=== PATIENT | male | born 1955 ===

== ENCOUNTER 2025-03-20 10:35 | Outpatient (REF) | payer SELFPAY ==
[2025-03-20 12:09] LABS: MANUAL DIFF FLAG NO
[2025-03-20 12:18] LABS: Hematocrit 36.5 % (42.0-52.0); Hemoglobin 11.9 g/dl (14.0-18.0); Imm Gran Abs Auto 0.01 X10*3/uL (0.00-0.03); Imm Gran Pct Auto 0.3 % (0.0-0.4); Lymphocytes Absolute Auto 0.8 X10*3/uL (1.2-4.9); Mean Corpuscular HGB Conc 32.6 g/dl (31.0-36.0); Mean Corpuscular Hemoglobin 28.1 pg (27.0-33.0); Mean Corpuscular Volume 86.1 fL (80.0-98.0); NRBC Abs Auto 0.000 X10*3/uL (0.0-0.012); NRBC Pct Auto 0.0 /100WBC (0.0-0.2); Platelet Count 113 X10*3/uL (160-400); Red Blood Count 4.24 X10*6/uL (4.60-5.80); White Blood Count 4.0 X10*3/uL (4.8-10.8)
[2025-03-20 12:54] LABS: Alanine Aminotransferase 17 U/L (0-40); Albumin Level 4.1 g/dL (3.5-5.0); Alkaline Phosphatase 42 U/L (39-117); Anion Gap 11 (12-20); Aspartate Amino Transferase 18 U/L (5-37); Blood Urea Nitrogen 23 mg/dL (9-16); Calcium 9.0 mg/dL (8.4-10.2); Carbon Dioxide 28 mmol/L (22-29); Chloride 109 mmol/L (96-108); Estimated Glomerular Filt Rate 53; Magnesium 2.2 mg/dL (1.6-2.6); Potassium 4.3 mmol/L (3.3-5.1); Sodium 144 mmol/L (135-145); Total Protein 6.0 g/dL (6.5-8.0)
--- OUTSIDE RECORDS SUMMARY | 2025-03-20 14:46 | XMS_ITS | Encounter Summary ---
Author Organization [facility] Address [address] [place] [address] Phone Care Team Providers Care Garbage Collector Name Role Phone Erik Greer MD Unavailable [phone] Cabrera Cox MD Unavailable [phone] Leandro Arana MD, PhD Unavailable Self-Referred, Patient Unavailable Unavailab Jeannine Manrique MD Primary Care Provider [phone] Samson Nichols MD Unavailable [phone] Candice Lucas MD Unavailable [phone] Neville Ireland MD Unavailable [phone] Bi, Cole Gutierrez MD, PhD Unavailable [phone] Elisabeth Olson PA-C Unavailable [phone] Travis Ibarra [facility] Unavailable [phone] Encounter Details Date Type Department Care Team (Late st Contact Info) Description 01/07/2025 Procedure Pass MRI, [facility] [address] [place] [address] Social History Tobacco Use Types Packs/Day Years Used Date Smoking Tobacco: Former Cigarettes 0.5 21 0 05/24/1970 - 1991 Smokeless Tobacco: Never Alcohol Use Standard Drinks/Week Comments Yes 4 (1 standard drink = 0.6 oz pur e alcohol) 2-3 vodkas daily Child or Family Care Answer Date Record ed Do you have problems with on e of the following making it difficult for you to work, study, or receive health care? No 08/09/2024 Education Answer Date Recorded Are you interested in more education? Not on julita e 09/10/2022 Are you concerned about learning? Not on file 09/10/2022 No 09/10/2022 No 09/10/2022 Food Answer Date Recorded Within the past 6 months we worried whether our food would run out before we got money to buy more. Never True 08/09/2024 Within the past 6 months the food we bought just didn't last and we didn't have enough money to get more. Never True Residential Stability Answer Date Recor ded What is your housing situation today? I have sirena sing 08/09/2024 How many times have you move d in the past 12 months? Zero (I did not move) 08/09/2024 Paying for Meds Answer Date Recorded Do you have trouble paying for medicines? No 08/09/2024 Paying Utility Bills Answer Date Record ed Do you have trouble paying your heating or elect ricity bill? No 08/09/2024 Transportation Answer Date Recorded Has the lack of transportati on kept you from medical appointments or from getting medications? No 08/09/2024 Digital Access Answer Date Recorded No 10/09/2022 No 10/09/2022 Reliable internet access at home? Not on file 10/09/2022 Device with a working camera? Not on file Sex and Gender Information Value Date Recorded Sex Assigned at Male 07/12/2024 2:18 PM EST Legal Sex Male 10:08 AM EDT Gender Identity Male 07/12/2024 2:18 PM EST Sexual Orientation Straight 07/12/2024 2: 18 PM EST documented as of this encounter Plan of Treatment Upcoming Encounters Date Type Department Care Team (Late st Contact Info) Description 12/19/2024 Procedure Pass [facility] Radiology Department [address] [place] [address] 2025 Procedure Pass [facility] Radiology Department [address] [place] [address] 03/27/2025 8:00 AM EST Ancillary Procedure [facility] Radiology Department [address] [place] [address] Elisabeth Olson PA-C [address] [place] [address] [email or web address]@[email or web address] 03/27/2025 9:00 AM EST Nurse Only Electrocardiogram, [address] [address] Neville Ireland MD [address] [place] [phone] [email or web address] 03/27/2025 9:10 AM EST Blood Draw Laboratory Services, [address], [address]nd [place] [address] Elisabeth Olson PA-C [address] [place] [phone] [email or web address]@[email or web address] 03/27/2025 10:00 AM EST Office Visit Center for Neuro-Oncology, [address] [place] [address] Neville Ireland MD [address] [place] [address] [email or web address]@[facility] 03/27/2025 1:00 PM EST Office Visit Adult Palliative Care, [address] [place] [address] North Johnson MD, MPH [address] [place] [address] [email or web address]@[email or web address] 03/28/2025 1:00 PM EST Appointment Department of Radiation Oncology [address] [place] [address] Betzaida Yan PA-C [address] [place] [address] 04/04/2025 1:00 PM EST Telemedicine Psychosocial Oncology, [address] [address] Jason Del Rio MD [address] [place] [address] Vilma@[email or web address] 04/24/2025 1:00 PM EST Ancillary Procedure [facility] [address] [place] [address] Neville Ireland MD [address] [place] [address] [email or web address]@[facility] 04/24/2025 3:00 PM EST Office Visit Center for Neuro-Oncology, [address] [place] [address] Neville Ireland MD [address] [place] [address] Ranulfo@[facility] documented as of this encounter Visit Diagnoses Not on filedocumented in this encounter Additional Health Concerns Assessment Noted Time PHQ-9 Depression Total Score: 7 01/08/20 7:04 AM EDT PHQ-2 Depression Total Score: 5 01/08/20 7:04 AM EDT documented as of this encounter Care Teams Garbage Collector Relationship Specialty Start Date End Date Jeannine Brody MD [address] [place] [address] PCP - General Internal Medicine 08/01/24 Erik Greer MD 100 [facility] [address] [place] [address] [email or web address] Urology 04/26/18 Cabrera Cox MD 100 [facility] [address] [place] [phone] [email or web address] Urology 04/26/18 Leandro Arana MD, PhD [address] [place] [address] [email or web address] Radiation Oncology 04/26/18 Self-Referred, Patient Referring Physician 07/12/24 Samson Nichols MD [address] [place] [address] [email or web address] u Radiation Oncology 08/04/24 Candice Lucas MD [address] [place] [address] Neurosurgery 08/04/24 Neville Ireland MD [address] [place] [address] [email or web address] Medical Oncology 08/04/24 Cole Hassan MD, PhD [address] [place] [address] [email or web address] Neurosurgery 08/06/24 Elisabeth Olson PA-C [address] [place] [address] [email or web address] Physician Newspaper Photojournalist 09/12/24 Travis Ibarra, [address] [address] Tayler@[email or web address] Transportation Clerk Oncology 12/05/24 documented as of this encounter Additional Source Comments The information contained in this document represents components of the legal health record. It is not the complete legal health record.[facility]
--- OUTSIDE RECORDS SUMMARY | 2025-03-20 14:46 | XMS_ITS | Patient Health Record ---
Author Organization [facility] Address [address] [place] [address] Care Team Providers Care Folder Gluer Operator Name Role Phone Gladis DUGGAN, Juan Primary Care Provider Hari Langley Unavailable [phone] Allergies Allergen (clinical drug ingredient) Drug/Non Drug Allergy documented on EMR Reaction Allergy Type Onset Date Status morphine Morphine vomiting Drug Allergy Active Reason For Referral No Information Social History Tobacco Use: Social History Observation Description Date Details (start date - stop date) Former Smoker NA - NA Tobacco Use/Smoking Question Answer Notes Are you a: former smoker Additional Findings: Tobacco Non-User Current no n-smoker Alcohol Screen Question Answer Notes Did you have a drink containing alcohol in the p ast year? Yes Points 0 Interpretation Negative Tobacco use other than smoking: Question Answer Notes Are you an other tobacco user? No Plan Of Treatment No Information Insurance Providers Payer Name Payer Address Payer Phone Subscriber Number Group Number Insured Name Patient Relationship to Insured Coverage Start Date Coverage End Date [facility] [address] [place] [address] [phone] [id number] Soraida Proctor Spouse - patient is the spouse of the insured Medical (General) History Medical History History ICD Code Cancer Surgical History Surgery Date(Month/Year) prostate 06/2018
--- OUTSIDE RECORDS SUMMARY | 2025-03-20 14:46 | XMS_ITS ---
Author Organization [facility] Address [address] [facility] [address] [place] [address] Phone Care Team Providers Care Educational Guidance Counselor Name Role Phone Erik Greer MD Unavailable [phone] Cabrera Cox MD Unavailable [phone] Leandro Arana MD, PhD Unavailable Self-Referred, Patient Unavailable Unavailab Jeannine Manrique MD Primary Care Provider [phone] Samson Nichols MD Unavailable [phone] Candice Lucas MD Unavailable [phone] Neville Ireland MD Unavailable [phone] Bi, Cole Gutierrez MD, PhD Unavailable [phone] Elisabeth Olson PA-C Unavailable [phone] Travis Ibarra [facility] Unavailable [phone] Active Problems Problem Noted Date Diagnosed Date Radiation therapy induced brain necrosis 025 Former tobacco use 08/07/2024 DJD (degenerative joint disease), cervical 08/07 Decreased hearing 08/07/2024 Glioblastoma of occipital lobe 08/03/2024 Cancer Staging:Clinical stage from 07/16/2024:WHO G4- Signed by Samson Nichols MD on 08/07/2024 Prostate cancer Cancer Staging:Clinical stage from 04/26/2018: T1c, PSA Level: Less than 10, [place] <= 6, Stage Date: 04/26/18 - Unsigned Assessment & Plan (06/23/2018 6:05 AM EST): Plan: Admit to urology (ASK) N: APAP, oxycodone, toradol; 20 shots of liquor/week - CIWA ordered Pulm: monitor CV: monitor GI: ADAT in AM; bowel reg : bryant x7 days H: pboots, home with lovenox x7 days E: No issues ID: kosta-op ancef x24h only AM labs D/c home today Current Treatment and Therapy Plans CARBOPLATIN (MALIGNANT GLIOMA)* Plan Start Date:01/11/2025 Plan Provider:Neville Ireland MD Linked Problems Glioblastoma of occipital lo be Treatment Medications Current Day (Day 1 , Cycle 2 - Planned for 02/08/2025) Next Day (Day 1, Cycle 3 - Planned for 03/08/2025) CARBOplatin (PARAPLATIN)CARBOplatin (PARAPLATIN) IVPB (by AUC) 270 mL CARBOplatin (PARAPLATIN) 383 mg in D5W 308.3 mL IVPB CARBOplatin (PARAPLATIN) 383 mg in D5W 308.3 mL IVPB Other Current Plans BEVACIZUMAB - EVERY OTHER WEEK* Plan Start Date:01/11/2025 Plan Provider:Neville Ireland MD Linked Problems Radiation therapy induced br ain necrosis Treatment Medications Current Day (Day 1 5, Cycle 2 - Planned for 02/23/2025) bevacizumabbevacizumab-awwb (MVASI) IVPB Bag bevacizumab-awwb (MVASI) 663 mg in sodiu m chloride 0.9% 136.52 mL IVPB Past Treatment and Therapy Plans RESEARCH PLAN Plan Name Start Date Discontinue Date Treatment Medications Discontinue Reason Plan Provider Cycles 16-443 CONTROL 5 01/07/2025 temozolomide (TEMODAR) b. Progression Neville Ireland MD 3 of 7 cycles completed 16-443 CONTROL 08/20/2024 11/05/2024 temozolomide (TEMODAR) a. Therapy Complete Neville Ireland MD Treatment not started Past Radiation Episodes * VMAT: Left Occipital lobe of brainOverview* First Treatment Date Last Treatment Date Treatment Site Technique Goal Episode Provider 08/21/2024 10/01/2024 Left Occipital lobe of brain VMAT Definitive Samson Nichols MD * Linked Problems Glioblastoma of occipital lo be * Episode Note Cem Proctor is a 69 y.o. 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 Lucas at [facility]). Treatment Courses* Course C1 08/21/2024 - 10/01/2024 Treatment Period Fraction Dose Fractions Total Dose Plans Planned A1_L_Occipita 08/21/2024 - 10/01/2024 200 cGy 30 / 30 6,000 cGy Reference Points Delivered A_L_Occipital 08/21/2024 - 10/01/2024 6,000 cGy Resolved Problems Problem Noted Date Diagnosed Date Resolved Date At risk for falls 08/14/2024 01/01/2025 Pre-diabetes 08/07/2024 01/01/2025 Hypoglycemia 08/07/2024 01/01/2025 History of prostate cancer 08/07/2024 0 08/07/2024 Overview (08/07/2024): Per previous PCP notes: treated with prostatectomy at the [facility] Decreased functional mobility 07/17/2024 01/01/2025 Alteration in self-care ability 07/17/2024 01/01/2025 Intracranial mass 07/13/2024 08/07/2024 Osteoarthritis 09/10/2022 01/01/2025 Pain of ear structure 09/10/20222024 Urolithiasis 01/01/2025 Kidney stones 01/01/2025 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
--- OUTSIDE RECORDS SUMMARY | 2025-03-20 14:46 | XMS_ITS | Encounter Summary ---
Author Organization [facility] Address [address] [facility] [address] [place] [address] Phone Care Team Providers Care Sterile Preparation Technician Name Role Phone Erik Greer MD Unavailable [phone] Cabrera Cox MD Unavailable [phone] Leandro Arana MD, PhD Unavailable Self-Referred, Patient Unavailable Unavailab Jeannine Manrique MD Primary Care Provider [phone] Samson Nichols MD Unavailable [phone] Candice Lucas MD Unavailable [phone] Neville Ireland MD Unavailable [phone] Bi, Cole Gutierrez MD, PhD Unavailable [phone] Elisabeth Olson PA-C Unavailable [phone] Travis Ibarra [facility] Unavailable [phone] Encounter Details Date Type Department Care Team (Late st Contact Info) Description 01/20/2025 Telephone [facility] [address] [place] [phone] Manuelito Bustos MD, PhD [address] [place] [phone] [email or web address] Social History Tobacco Use Types Packs/Day Years [...] with a working camera? Not on file Intimate Partner Violence Answer Date R ecorded Are you denied basic needs s uch as food, clothing, or medical care? No 01/23/2025 In the past 12 months have y ou been in a relationship with a person who hurts, threatens, or tries to control you? No 01/23/2025 Are you denied basic needs s uch as food, clothing, or medical care? No 01/23/2025 In the past 12 months have y ou been in a relationship with a person who hurts, threatens, or tries to control you? No 01/23/2025 Sex and Gender Information Value Date Recorded Sex Assigned at Male 07/12/2024 2:18 PM EST Legal Sex Male 10:08 AM EDT Gender Identity Male 07/12/2024 2:18 PM EST Sexual Orientation Straight 07/12/2024 2: 18 PM EST documented as of this encounter Progress Notes * Manuelito Bustos MD, PhD - 01/20/2025 7:51 AM EDT Telephone Note 69 year old man with glioblastoma, now on carboplatin and OCHOA (last 01/11/2025), followed by Dr. Ireland. Last MRI 01/07/2025 notable for new confluent and nodular supratentorial periventricular enhancement including enhancement along 4h vent. I returned the patient's family's page. For about one day, Mr. Proctor has been experiencing pressurebehind his eyes. It began yesterday after wearing an old pair of glasses, but this AM, after he woke up, he found that the pressure persisted, more behind his left eye now. The pain is currently a 3/10. No vision changes (a chronic R field cut persists), no weakness nor sensory changes, no nausea or vomiting. No clear positionality. In response to this new pressure, we discussed it could be related to his tumor. Therefore, we willplan to try a short course of steroids (though I will provide a longer prescription to keep on handat home) of dexamethasone 4mg qD. He has an inperson appt with us 01/23 where we will address the ongoing need for these medications and need for imaging. In the meantime, we also discussed that if the symptoms worsen or there is an acute change that he should present to an ED. Manuelito Bustos MD NOC Fellow documented in this encounter Plan of Treatment Upcoming Encounters Date Type Department Care Team (Late st Contact Info) Description 12/19/2024 Procedure Pass [facility] Radiology Department [address] [place] [address] 2025 Procedure Pass [facility] Radiology Department [address] [place] [address] 03/27/2025 8:00 AM EST Ancillary Procedure [facility] Radiology Department [address] [place] [address] Elisabeth Olson PA-C [address] [place] [phone] Kirstie@[email or web address] 03/27/2025 9:00 AM EST Nurse Only Electrocardiogram, [address] [address] Neville Ireland MD [address] [place] [address] [email or web address] 03/27/2025 9:10 AM EST Blood Draw Laboratory Services, [address] [place] [address] Elisabeth Olson PA-C [address] [place] [phone] Kirstie@[facility] 03/27/2025 10:00 AM EST Office Visit Center for Neuro-Oncology, [address] [place] [address] Neville Ireland MD [address] [place] [address] Ranulfo@[facility] 03/27/2025 1:00 PM EST Office Visit Adult Palliative Care, [address] [place] [address] North Johnson MD, MPH [address] [place] [address] Kamini@[email or web address] 03/28/2025 1:00 PM EST Appointment Department of Radiation Oncology [address] [place] [address] Betzaida Yan PA-C [address] [place] [address] [email or web address] 04/04/2025 1:00 PM EST Telemedicine Psychosocial Oncology, [address] [address] Jason Del Rio MD [address] [place] [address] Vilma@[email or web address] 04/24/2025 1:00 PM EST Ancillary Procedure [facility] [address] [place] [address] Neville Ireland MD [address] [place] [address] [email or web address]@[email or web address] 04/24/2025 3:00 PM EST Office Visit Center for Neuro-Oncology, [address] [place] [address] Neville Ireland MD [address] [place] [address] [email or web address]@[email or web address] documented as of this encounter Visit Diagnoses Not on filedocumented in this encounter Additional Health Concerns Assessment Noted Time PHQ-9 Depression Total Score: 7 01/08/20 7:04 AM EDT PHQ-2 Depression Total Score: 5 01/08/20 7:04 AM EDT documented as of this encounter Care Teams Sterile Preparation Technician Relationship Specialty Start Date End Date Jeannine Brody MD [address] [place] [address] PCP - General Internal Medicine 08/01/24 Erik Greer MD [address] [phone] [email or web address] Urology 04/26/18 Cabrera Cox MD [address] [phone] [email or web address] Urology 04/26/18 Leandro Arana MD, PhD [address] [place] [address] [email or web address] Radiation Oncology 04/26/18 Self-Referred, Patient Referring Physician 07/12/24 Samson Nichols MD [address] [place] [address] [email or web address] Radiation Oncology 08/04/24 Candice Lucas MD [address] [place] [address] Neurosurgery 08/04/24 Neville Ireland MD [address] [place] [address] [email or web address] Medical Oncology 08/04/24 Cole Hassan MD, PhD [address] [place] [address] [email or web address] Neurosurgery 08/06/24 Elisabeth Olson PA-C [address] [place] [address] [email or web address] Physician Special Investigator 09/12/24 Travis Ibarra, [address] [address] [email or web address] Book Repairer Oncology 12/05/24 documented as of this encounter Additional Source Comments The information contained in this document represents components of the legal health record. It is not the complete legal health record.[facility]
--- OUTSIDE RECORDS SUMMARY | 2025-03-20 14:46 | XMS_ITS | Encounter Summary ---
Author Organization [facility] Address [address] [place] [address] Phone Care Team Providers Care Freelance Data Entry Name Role Phone Erik Greer MD Unavailable [phone] Cabrera Cox MD Unavailable [phone] Leandro Arana MD, PhD Unavailable Self-Referred, Patient Unavailable Unavailab Jeannine Manrique MD Primary Care Provider [phone] Samson Nichols MD Unavailable [phone] Candice Lucas MD Unavailable [phone] Neville Ireland MD Unavailable [phone] Bi, Cole Gutierrez MD, PhD Unavailable +[phone] Elisabeth Olson PA-C Unavailable +[phone] Travis Ibarra [facility] Unavailable +[phone] Encounter Details Date Type Department Care Team (Late st Contact Info) Description 01/07/2025 Procedure Pass MRI, [facility] Imaging [address] Darryl [...] st Contact Info) Description 12/19/2024 Procedure Pass [facility] Radiology Department [address] [place] [address] 2025 Procedure Pass [facility] Radiology Department [address] [place] [address] 03/27/2025 8:00 AM EST Ancillary Procedure [facility] Radiology Department [address] [place] [address] Elisabeth Olson PA-C [address] [place] [address] Kirstie@[facility] 03/27/2025 9:00 AM EST Nurse Only Electrocardiogram, [address] [address] Neville Ireland MD [address] [place] [address] Ranulfo@[facility] 03/27/2025 9:10 AM EST Blood Draw Laboratory Services, [address], 2nd [place] [address] Elisabeth Olson PA-C [address] [place] [address] Kirstie@[facility] 03/27/2025 10:00 AM EST Office Visit Center for Neuro-Oncology, [address], [address]th [place] [address] Neville Ireland MD [address] [place] [address] Ranulfo@[facility] 03/27/2025 1:00 PM EST Office Visit Adult Palliative Care, [address], [address]th [place] [address] North Johnson MD, MPH [address] [place] [address] Kamini@[facility] 03/28/2025 1:00 PM EST Appointment Department of Radiation Oncology [address] [place] [address] Betzaida Yan PA-C [address] [place] [address] 04/04/2025 1:00 PM EST Telemedicine Psychosocial Oncology, [address] [address] Jason Del Rio MD [address] [place] [address] Vilma@[facility] 04/24/2025 1:00 PM EST Ancillary Procedure [facility] [address] [place] [address] Neville Ireland MD [address] [place] [address] Ranulfo@[facility] 04/24/2025 3:00 PM EST Office Visit Center for Neuro-Oncology, [address], 9th [place] [address] Neville Ireland MD [address] [place] [address] Ranulfo@[facility] documented as of this encounter Visit Diagnoses Not on filedocumented in this encounter Additional Health Concerns Assessment Noted Time PHQ-9 Depression Total Score: 7 01/08/20 7:04 AM EDT PHQ-2 Depression Total Score: 5 01/08/20 7:04 AM EDT documented as of this encounter Care Teams Freelance Data Entry Relationship Specialty Start Date End Date Jeannine Brody MD [address] [place] [address] PCP - General Internal Medicine 08/01/24 Erik Greer MD 100 [facility] 120 [place] [address] [email or web address] Urology 04/26/18 Cabrera Cox MD 100 [facility] 120 [place] [phone] PATRICK@[facility] Urology 04/26/18 Leandro Arana MD, PhD [address] [place] [address] [email or web address] Radiation Oncology 04/26/18 Self-Referred, Patient Referring Physician 07/12/24 Samson Nichols MD [address] [place] [address] [email or web address] u Radiation Oncology 08/04/24 Candice Lucas MD [address] [place] [address] Neurosurgery 08/04/24 Neville Ireland MD [address] [place] [address] Ranulfo@[facility] Medical Oncology 08/04/24 Cole Hassan MD, PhD [address] [place] [address] WBI@[email or web address] Neurosurgery 08/06/24 Elisabeth Olson PA-C [address] [place] [address] Kirstie@[facility] Physician Emergency Detail Driver 09/12/24 Travis Ibarra, [address] [address] Tayler@[facility] Spinning Frame Fixer Oncology 12/05/24 documented as of this encounter Additional Source Comments The information contained in this document represents components of the legal health record. It is not the complete legal health record.[facility]
--- OUTSIDE RECORDS SUMMARY | 2025-03-20 14:46 | XMS_ITS | Encounter Summary ---
Author Organization [facility] Address [address] [place] [address] Phone Care Team Providers Care Cargo Worker Name Role Phone Erik Greer MD Unavailable [phone] aCbrera Cox MD Unavailable [phone] Leandro Arana MD, PhD Unavailable Self-Referred, Patient Unavailable Unavailab Jeannine Manrique MD Primary Care Provider [phone] Samson Nichols MD Unavailable [phone] Candice Lucas MD Unavailable [phone] Neville Ireland MD Unavailable [phone] Bi, Cole Gutierrez MD, PhD Unavailable [phone] Elisabeth Olson PA-C Unavailable +[phone] Travis Ibarra [facility] Unavailable [phone] Encounter Details Date Type Department Care Team (Late st Contact Info) Description 08/06/2024 Procedure Pass [facility] MR Imaging, [place] [address] [place] [address] Social History Tobacco Use Types Packs/Day Years [...] st Contact Info) Description 12/19/2024 Procedure Pass [facility] Radiology Department [address] [place] [address] 2025 Procedure Pass [facility] Radiology Department [address] [place] [address] 03/27/2025 8:00 AM EST Ancillary Procedure [facility] Radiology Department [address] [place] [address] Elisabeth Olson PA-C [address] [place] [address] Kirstie@[facility] 03/27/2025 9:00 AM EST Nurse Only Electrocardiogram, [address] [address] Neville Ireland MD [address] [place] [address] Ranulfo@[facility] 03/27/2025 9:10 AM EST Blood Draw Laboratory Services, [address], 2nd [place] [address] Elisabeth Olson PA-C [address] [place] [address] Kirstie@[facility] 03/27/2025 10:00 AM EST Office Visit Center for Neuro-Oncology, [address], [address]th [place] [address] Neville Ireland MD [address] [place] [address] Ranulfo@[facility] 03/27/2025 1:00 PM EST Office Visit Adult Palliative Care, [address], [address]th [place] [address] North Johnson MD, MPH [address] [place] [address] Kamini@[facility] 03/28/2025 1:00 PM EST Appointment Department of Radiation Oncology [address] [place] [address] Betzaida Yan PA-C [address] [place] [address] 04/04/2025 1:00 PM EST Telemedicine Psychosocial Oncology, [address] [address] Jason Del Rio MD [address] [place] [address] Vilma@[facility] 04/24/2025 1:00 PM EST Ancillary Procedure [facility] [address] [place] [address] Neville Ireland MD [address] [place] [address] Ranulfo@[facility] 04/24/2025 3:00 PM EST Office Visit Center for Neuro-Oncology, [address], 9th [place] [address] Neville Ireland MD [address] [place] [address] Ranulfo@[facility] documented as of this encounter Visit Diagnoses Not on filedocumented in this encounter Care Teams Cargo Worker Relationship Specialty Start Date End Date Jeannine Brody MD [address] [place] [address] PCP - General Internal Medicine 08/01/24 Erik Greer MD 100 [facility] 120 [place] [phone] silverio@[facility].or g Urology 04/26/18 Cabrera Cox MD 100 [facility] 120 [place] [phone] PATRICK@[facility] Urology 04/26/18 Leandro Arana MD, PhD [address] [place] [address] ellis@[email or web address] Radiation Oncology 04/26/18 Self-Referred, Patient Referring Physician 07/12/24 Samson Nichols MD [address] [place] [address] [email or web address] u Radiation Oncology 08/04/24 Candice Lucas MD [address] [place] [address] Neurosurgery 08/04/24 Neville Ireland MD [address] [place] [address] Ranulfo@[facility] Medical Oncology 08/04/24 BiCole MD, PhD [address] [place] [address] WBI@[facility] Neurosurgery 08/06/24 Elisabeth Olson PA-C [address] [place] [address] Kirstie@[facility] Physician Nursing Officer 09/12/24 Travis Ibarra, [address] [address] Tayler@[facility] Jewelry Bench Worker Oncology 12/05/24 documented as of this encounter Additional Source Comments The information contained in this document represents components of the legal health record. It is not the complete legal health record.[facility]
--- OUTSIDE RECORDS SUMMARY | 2025-03-20 14:46 | XMS_ITS | Encounter Summary ---
Author Organization [facility] Address [address] [facility] [address] [place] [address] Phone Care Team Providers Care Bike Assembler Name Role Phone Erik Greer MD Unavailable [phone] Cabrera Cox MD Unavailable [phone] Leandro Arana MD, PhD Unavailable Self-Referred, Patient Unavailable Unavailab Jeannine Manrique MD Primary Care Provider [phone] Samson Nichols MD Unavailable [phone] Candice Lucas MD Unavailable [phone] Neville Ireland MD Unavailable [phone] Bi, Cole Gutierrez MD, PhD Unavailable [phone] Elisabeth Olson PA-C Unavailable [phone] Travis Ibarra [facility] Unavailable [phone] Encounter Details Date Type Department Care Team (Late st Contact Info) Description 08/06/2024 Procedure Pass [facility] MR Imaging, [place] [address] [place] [address] Social History Tobacco Use Types [...] st Contact Info) Description 12/19/2024 Procedure Pass [facility] Radiology Department [address] [place] [address] 2025 Procedure Pass [facility] Radiology Department [address] [place] [address] 03/27/2025 8:00 AM EST Ancillary Procedure [facility] Radiology Department [address] [place] [address] Elisabeth Olson PA-C [address] [place] [address] Kirstie@[facility] 03/27/2025 9:00 AM EST Nurse Only Electrocardiogram, [address] [address] Neville Ireland MD [address] [place] [address] Ranulfo@[facility] 03/27/2025 9:10 AM EST Blood Draw Laboratory Services, [address], 2nd [place] [address] Elisabeth Olson PA-C [address] [place] [address] Kirstie@[facility] 03/27/2025 10:00 AM EST Office Visit Center for Neuro-Oncology, [address], [address]th [place] [address] Neville Ireland MD [address] [place] [address] Ranulfo@[facility] 03/27/2025 1:00 PM EST Office Visit Adult Palliative Care, [address], [address]th [place] [address] North Johnson MD, MPH [address] [place] [address] Kamini@[facility] 03/28/2025 1:00 PM EST Appointment Department of Radiation Oncology [address] [place] [address] Betzaida Yan PA-C [address] [place] [address] 04/04/2025 1:00 PM EST Telemedicine Psychosocial Oncology, [address] [address] Jason Del Rio MD [address] [place] [address] Vilma@[facility] 04/24/2025 1:00 PM EST Ancillary Procedure [facility] [address] [place] [address] Neville Ireland MD [address] [place] [address] Ranulfo@[facility] 04/24/2025 3:00 PM EST Office Visit Center for Neuro-Oncology, [address], 9th [place] [address] Neville Ireland MD [address] [place] [address] Ranulfo@[facility] documented as of this encounter Visit Diagnoses Not on filedocumented in this encounter Care Teams Bike Assembler Relationship Specialty Start Date End Date Jeannine Brody MD [address] [place] [address] PCP - General Internal Medicine 08/01/24 Erik Greer MD 100 [facility] 120 [place] [phone] [email or web address] g Urology 04/26/18 Cabrera Cox MD 100 [facility] 120 [place] [phone] PATRICK@[facility] Urology 04/26/18 Leandro Arana MD, PhD [address] [place] [address] [email or web address] Radiation Oncology 04/26/18 Self-Referred, Patient Referring Physician 07/12/24 Samson Nichols MD [address] [place] [address] [email or web address] u Radiation Oncology 08/04/24 Candice Lucas MD [address] [place] [address] Neurosurgery 08/04/24 Neville Ireland MD [address] [place] [address] Ranulfo@[facility] Medical Oncology 08/04/24 BiCole MD, PhD [address] [place] [address] WBI@[facility] Neurosurgery 08/06/24 Elisabeth Olson PA-C [address] [place] [address] Kirstie@[facility] Physician Rubber Goods Inspector Tester 09/12/24 Travis Ibarra, [address] [address] Tayler@[facility] Dolly Pusher Oncology 12/05/24 documented as of this encounter Additional Source Comments The information contained in this document represents components of the legal health record. It is not the complete legal health record.[facility]
--- OUTSIDE RECORDS SUMMARY | 2025-03-20 14:46 | XMS_ITS | Encounter Summary ---
Author Organization [facility] Address [address] [facility] [address] [place] [address] Phone Care Team Providers Care Admission Discharge Rn Name Role Phone Erik Greer MD Unavailable [phone] Cabrera Cox MD Unavailable [phone] Leandro Arana MD, PhD Unavailable Self-Referred, Patient Unavailable Unavailab Jeannine Manrique MD Primary Care Provider [phone] Samson Nichols MD Unavailable [phone] Candice Lucas MD Unavailable [phone] Neville Ireland MD Unavailable [phone] Bi, Cole Gutierrez MD, PhD Unavailable +[phone] Elisabeth Olson PA-C Unavailable [phone] Travis Ibarra [facility] Unavailable [phone] Encounter Details Date Type Department Care Team (Late st Contact Info) Description 08/06/2024 Procedure Pass [facility] MR Imaging, [place] [address] [place] [address] Social History Tobacco Use Types [...] st Contact Info) Description 12/19/2024 Procedure Pass [facility] Radiology Department [address] [place] [address] 2025 Procedure Pass [facility] Radiology Department [address] [place] [address] 03/27/2025 8:00 AM EST Ancillary Procedure [facility] Radiology Department [address] [place] [address] Elisabeth Olson PA-C [address] [place] [address] Kirstie@[facility] 03/27/2025 9:00 AM EST Nurse Only Electrocardiogram, [address] [address] Neville Ireland MD [address] [place] [address] Ranulfo@[facility] 03/27/2025 9:10 AM EST Blood Draw Laboratory Services, [address], 2nd [place] [address] Elisabeth Olson PA-C [address] [place] [address] Kirstie@[facility] 03/27/2025 10:00 AM EST Office Visit Center for Neuro-Oncology, [address], [address]th [place] [address] Neville Ireland MD [address] [place] [address] Ranulfo@[facility] 03/27/2025 1:00 PM EST Office Visit Adult Palliative Care, [address], [address]th [place] [address] North Johnson MD, MPH [address] [place] [address] Kamini@[facility] 03/28/2025 1:00 PM EST Appointment Department of Radiation Oncology [address] [place] [address] Betzaida Yan PA-C [address] [place] [address] 04/04/2025 1:00 PM EST Telemedicine Psychosocial Oncology, [address] [address] Jason Del Rio MD [address] [place] [address] Vilma@[facility] 04/24/2025 1:00 PM EST Ancillary Procedure [facility] [address] [place] [address] Neville Ireland MD [address] [place] [address] Ranulfo@[facility] 04/24/2025 3:00 PM EST Office Visit Center for Neuro-Oncology, [address], 9th [place] [address] Neville Ireland MD [address] [place] [address] Ranulfo@[facility] documented as of this encounter Visit Diagnoses Not on filedocumented in this encounter Care Teams Admission Discharge Rn Relationship Specialty Start Date End Date Jeannine Brody MD [address] [place] [address] PCP - General Internal Medicine 08/01/24 Erik Greer MD 100 [facility] 120 [place] [phone] silverio@[facility].or g Urology 04/26/18 Cabrera Cox MD 100 [facility] 120 [place] [phone] PATRICK@[facility] Urology 04/26/18 Leandro Arana MD, PhD [address] [place] [address] [email or web address] Radiation Oncology 04/26/18 Self-Referred, Patient Referring Physician 07/12/24 Samson Nichols MD [address] [place] [address] [email or web address] u Radiation Oncology 08/04/24 Candice Lucas MD [address] [place] [address] Neurosurgery 08/04/24 Neville Ireland MD [address] [place] [address] Ranulfo@[facility] Medical Oncology 08/04/24 BiCole MD, PhD [address] [place] [address] WBI@[facility] Neurosurgery 08/06/24 Elisabeth Olson PA-C [address] [place] [address] Kirstie@[facility] Physician Professional Nurse 09/12/24 Travis Ibarra, [address] [address] Tayler@[facility] Reel System Operator Oncology 12/05/24 documented as of this encounter Additional Source Comments The information contained in this document represents components of the legal health record. It is not the complete legal health record.[facility]
--- OUTSIDE RECORDS SUMMARY | 2025-03-20 14:46 | XMS_ITS | Encounter Summary ---
Author Organization [facility] Address [address] [facility] [address] [place] [address] Phone Care Team Providers Care Machine Assistant Name Role Phone Erik Greer MD Unavailable [phone] Cabrera Cox MD Unavailable [phone] Leandro Arana MD, PhD Unavailable Self-Referred, Patient Unavailable Unavailab Jeannine Marnique MD Primary Care Provider [phone] Samson Nichols MD Unavailable [phone] Candice Lucas MD Unavailable [phone] Neville Ireland MD Unavailable [phone] Bi, Cole Gutierrez MD, PhD Unavailable +[phone] Elisabeth Olson PA-C Unavailable [phone] Travis Ibarra [facility] Unavailable [phone] Encounter Details Date Type Department Care Team (Late st Contact Info) Description 08/06/2024 Procedure Pass [facility] MR Imaging, [place] [address] [place] [address] Social History Tobacco Use Types [...] st Contact Info) Description 12/19/2024 Procedure Pass [facility] Radiology Department [address] [place] [address] 2025 Procedure Pass [facility] Radiology Department [address] [place] [address] 03/27/2025 8:00 AM EST Ancillary Procedure [facility] Radiology Department [address] [place] [address] Elisabeth Olson PA-C [address] [place] [address] Kirstie@[facility] 03/27/2025 9:00 AM EST Nurse Only Electrocardiogram, [address] [address] Neville Ireland MD [address] [place] [address] Ranulfo@[facility] 03/27/2025 9:10 AM EST Blood Draw Laboratory Services, [address], 2nd [place] [address] Elisabeth Olsno PA-C [address] [place] [address] Kirstie@[facility] 03/27/2025 10:00 AM EST Office Visit Center for Neuro-Oncology, [address], [address]th [place] [address] Neville Ireland MD [address] [place] [address] Ranulfo@[facility] 03/27/2025 1:00 PM EST Office Visit Adult Palliative Care, [address] [place] [address] North Johnson MD, MPH [address] [place] [address] Kamini@[facility] 03/28/2025 1:00 PM EST Appointment Department of Radiation Oncology [address] [place] [address] Betzaida Yan PA-C [address] [place] [address] 04/04/2025 1:00 PM EST Telemedicine Psychosocial Oncology, [address] [address] Jason Del Rio MD [address] [place] [address] Vilma@[facility] 04/24/2025 1:00 PM EST Ancillary Procedure [facility] [address] [place] [address] Neville Ireland MD [address] [place] [address] Ranulfo@[facility] 04/24/2025 3:00 PM EST Office Visit Center for Neuro-Oncology, [address], 9th [place] [address] Neville Ireland MD [address] [place] [address] Ranulfo@[facility] documented as of this encounter Visit Diagnoses Not on filedocumented in this encounter Care Teams Machine Assistant Relationship Specialty Start Date End Date Jeannine Brody MD [address] [place] [address] PCP - General Internal Medicine 08/01/24 Erik Greer MD 100 [facility] 120 [place] [phone] [email or web address] g Urology 04/26/18 Cabrera Cox MD 100 [facility] 120 [place] [phone] PATRICK@[facility] Urology 04/26/18 Leandro Arana MD, PhD [address] [place] [address] [email or web address]@[email or web address] Radiation Oncology 04/26/18 Self-Referred, Patient Referring Physician 07/12/24 Samson Nichols MD [address] [place] [address] [email or web address] u Radiation Oncology 08/04/24 Candice Lucas MD [address] [place] [address] Neurosurgery 08/04/24 Neville Ireland MD [address] [place] [address] Ranulfo@[facility] Medical Oncology 08/04/24 BiCole MD, PhD [address] [place] [address] WBI@[facility] Neurosurgery 08/06/24 Elisabeth Olson PA-C [address] [place] [address] Kirstie@[facility] Physician General Operations Agent 09/12/24 Travis Ibarra, [address] [address] Tayler@[facility] Tower Climber Oncology 12/05/24 documented as of this encounter Additional Source Comments The information contained in this document represents components of the legal health record. It is not the complete legal health record.[facility]
--- OUTSIDE RECORDS SUMMARY | 2025-03-20 14:46 | XMS_ITS | Encounter Summary ---
Author Organization [facility] Address [address] [place] [address] Phone Care Team Providers Care Head Bander And Liner Operator Name Role Phone Erik Greer MD Unavailable [phone] Cabrera Cox MD Unavailable [phone] Leandro Arana MD, PhD Unavailable Self-Referred, Patient Unavailable Unavailab Jeannine Manrique MD Primary Care Provider Samson Nichols MD Unavailable [phone] Candice Lucas MD Unavailable [phone] Neville Ireland MD Unavailable [phone] Bi, Cole Gutierrez MD, PhD Unavailable +[phone] Elisabeth Olson PA-C Unavailable [phone] Travis Ibarra [facility] Unavailable [phone] Encounter Details Date Type Department Care Team (Late st Contact Info) Description 01/07/2025 Procedure Pass MRI, [facility] [address] Darryl [...] st Contact Info) Description 12/19/2024 Procedure Pass [facility] Radiology Department [address] [place] [address] 2025 Procedure Pass [facility] Radiology Department [address] [place] [address] 03/27/2025 8:00 AM EST Ancillary Procedure [facility] Radiology Department [address] [place] [address] Elisabeth Olson PA-C [address] [place] [address] Kirstie@[facility] 03/27/2025 9:00 AM EST Nurse Only Electrocardiogram, [address] [address] Neville Ireland MD [address] [place] [address] Ranulfo@[facility] 03/27/2025 9:10 AM EST Blood Draw Laboratory Services, [address], 2nd [place] [address] Elisabeth Olson PA-C [address] [place] [address] Kirstie@[facility] 03/27/2025 10:00 AM EST Office Visit Center for Neuro-Oncology, [address], [address]th [place] [address] Neville Ireland MD [address] [place] [address] Ranulfo@[facility] 03/27/2025 1:00 PM EST Office Visit Adult Palliative Care, [address], [address] [place] [address] North Johnson MD, MPH [address] [place] [address] Kamini@[facility] 03/28/2025 1:00 PM EST Appointment Department of Radiation Oncology [address] [place] [address] Betzaida Yan PA-C [address] [place] [address] 04/04/2025 1:00 PM EST Telemedicine Psychosocial Oncology, [address] [address] Jason eDl Rio MD [address] [place] [address] Vilma@[facility] 04/24/2025 1:00 PM EST Ancillary Procedure [facility] [address] [place] [address] Neville Ireland MD [address] [place] [address] Ranulfo@[facility] 04/24/2025 3:00 PM EST Office Visit Center for Neuro-Oncology, [address], 9th [place] [address] Neville Ireland MD [address] [place] [address] Ranulfo@[facility] documented as of this encounter Visit Diagnoses Not on filedocumented in this encounter Additional Health Concerns Assessment Noted Time PHQ-9 Depression Total Score: 7 01/08/20 7:04 AM EDT PHQ-2 Depression Total Score: 5 01/08/20 7:04 AM EDT documented as of this encounter Care Teams Head Bander And Liner Operator Relationship Specialty Start Date End Date Jeannine Brody MD [address] [place] [address] PCP - General Internal Medicine 08/01/24 Erik Greer MD 100 [facility] 120 [place] [address] [email or web address] Urology 04/26/18 Cabrera Cox MD 100 [facility] 120 [place] [phone] [email or web address]@[email or web address] Urology 04/26/18 Leandro Arana MD, PhD [address] [place] [address] [email or web address] Radiation Oncology 04/26/18 Self-Referred, Patient Referring Physician 07/12/24 Samson Nichols MD [address] [place] [address] [email or web address] u Radiation Oncology 08/04/24 Candice Lucas MD [address] [place] [address] Neurosurgery 08/04/24 Neville Ireland MD [address] [place] [address] [email or web address] Medical Oncology 08/04/24 Cole Hassan MD, PhD [address] [place] [address] WBI@[email or web address] Neurosurgery 08/06/24 Elisabeth Olson PA-C [address] [place] [address] Kirstie@[facility] Physician Inspector Firearms 09/12/24 Travis Ibarra, [address] [address] Tayler@[facility] Recording Studio Set Up Worker Oncology 12/05/24 documented as of this encounter Additional Source Comments The information contained in this document represents components of the legal health record. It is not the complete legal health record.[facility]
--- OUTSIDE RECORDS SUMMARY | 2025-03-20 14:48 | XMS_ITS | Encounter Summary ---
Author Organization [facility] Address [address] [facility] [address] [place] [address] Phone Care Team Providers Care Diversified Crops Supervisor Name Role Phone Erik Greer MD Unavailable [phone] Cabrera Cox MD Unavailable [phone] Leandro Arana MD, PhD Unavailable Self-Referred, Patient Unavailable Unavailab Jeannine Manrique MD Primary Care Provider [phone] Samson Nichols MD Unavailable [phone] Candice Lucas MD Unavailable [phone] Neville Ireland MD Unavailable [phone] Bi, Cole Gutierrez MD, PhD Unavailable +[phone] Elisabeth Olson PA-C Unavailable [phone] [facility] Unavailable [phone] Encounter Details Date Type Department Care Team (Late st Contact Info) Description 08/13/2024 Procedure Pass [facility], [facility] [place], [place] [address] [facility], Floor [address]1 [place] [address] Social History Tobacco Use Types Packs/Day Years [...] Upcoming Encounters Date Type Department Care Team (Trevin Contact Info) Description 12/19/2024 Procedure Pass [facility] Radiology Department [address] [place] [address] 2025 Procedure Pass [facility] Radiology Department [address] [place] [address] 03/27/2025 8:00 AM EST Ancillary Procedure [facility] Radiology Department [address] [place] [address] Elisabeth Olson PA-C [address] [place] [address] Kirstie@[facility] 03/27/2025 9:00 AM EST Nurse Only Electrocardiogram, [address] [address] Neville Ireland MD [address] [place] [address] Ranulfo@[facility] 03/27/2025 9:10 AM EST Blood Draw Laboratory Services, [address], 2nd [place] [address] Elisabeth Olson PA-C [address] [place] [address] Kirstie@[facility] 03/27/2025 10:00 AM EST Office Visit Center for Neuro-Oncology, [address], [address]th [place] [address] Neville Ireland MD [address] [place] [address] Ranulfo@[facility] 03/27/2025 1:00 PM EST Office Visit Adult Palliative Care, [address], [address]th [place] [address] North Johnson MD, MPH [address] [place] [address] Kamini@[facility] 03/28/2025 1:00 PM EST Appointment Department of Radiation Oncology [address] [place] [address] Betzaida Yan PA-C [address] [place] [address] [email or web address] 04/04/2025 1:00 PM EST Telemedicine Psychosocial Oncology, [address] [address] Jason Del Rio MD [address] [place] [address] Vilma@[facility] 04/24/2025 1:00 PM EST Ancillary Procedure [facility] [address] [place] [address] Neville Ireland MD [address] [place] [address] Ranulfo@[facility] 04/24/2025 3:00 PM EST Office Visit Center for Neuro-Oncology, [address], 9th [place] [address] Neville Ireland MD [address] [place] [address] Ranulfo@[facility] documented as of this encounter Visit Diagnoses Not on filedocumented in this encounter Additional Health Concerns Assessment Noted Time PHQ-2 Depression Total Score: 0 08/15/19 25 5:57 PM EDT documented as of this encounter Care Teams Diversified Crops Supervisor Relationship Specialty Start Date End Date Jeannine Brody MD [address] [place] [address] PCP - General Internal Medicine 08/01/24 Erik Greer MD [address] [facility] [address] [place] [address] [email or web address] Urology 04/26/18 Cabrera Cox MD [address] [facility] [address] [place] [address] PATRICK@[facility] Urology 04/26/18 Leandro Arana MD, PhD [address] [place] [address] [email or web address] Radiation Oncology 04/26/18 Self-Referred, Patient Referring Physician 07/12/24 Samson Nichols MD [address] [place] [address] [email or web address] u Radiation Oncology 08/04/24 Candice Lucas MD [address] [place] [address] Neurosurgery 08/04/24 Neville Ireland MD [address] [place] [address] Ranulfo@[email or web address] Medical Oncology 08/04/24 BiCole MD, PhD [address] [place] [address] [email or web address] Neurosurgery 08/06/24 Elisabeth Olson PA-C [address] [place] [address] Kirstie@[facility] Physician Sand Blaster 09/12/24 Travis Ibarra, [address] [address] Tayler@[facility] Marine Fire Fighter Oncology 12/05/24 documented as of this encounter Additional Source Comments The information contained in this document represents components of the legal health record. It is not the complete legal health record.[facility]
--- OUTSIDE RECORDS SUMMARY | 2025-03-20 14:48 | XMS_ITS | Encounter Summary ---
Author Organization [facility] Address [address] [place], [place] [address] [place] [address] Phone Care Team Providers Care Cloth Winder Name Role Phone Juan Griffith MD Primary Care Provider [phone] Erik Greer MD Unavailable [phone] Cabrera Cox MD Unavailable [phone] Leandro Arana MD, PhD Unavailable Jeannine Brody MD Primary Care Provider [phone] Self-Referred, Patient Unavailable Unavailab Jeannine Manrique MD Primary Care Provider [phone] Samson Nichols MD Unavailable [phone] Candice Lucas MD Unavailable [phone] Neville Ireland MD Unavailable [phone] Cole Hassan MD, PhD Unavailable [phone] Elisabeth Olson PA-C Unavailable [phone] [facility] Unavailable [phone] Encounter Details Date Type Department Care Team (Late Contact Info) Description 05/05/2018 Telephone [facility] Urology [address] [facility]-3 [place] [address] Cabrera Cox MD 45 [facility]. [facility] 11-3 [place] [address] [email or web address] Social History Tobacco Use Types Packs/Day Years Used Date Smoking Tobacco: Former Cigarettes 0.5 15 Alcohol Use Standard Drinks/Week Comments Yes 20 (1 standard drink = 0.6 oz pu re alcohol) vodka Sex and Gender Information Value Date Recorded Sex Assigned at Male 07/12/2024 2:18 PM EST Legal Sex Male 10:08 AM EDT Gender Identity Male 07/12/2024 2:18 PM EST Sexual Orientation Straight 07/12/2024 2: 18 PM EST documented as of this encounter Plan of Treatment Upcoming Encounters Date Type Department Care Team (Late st Contact Info) Description 12/19/2024 Procedure Pass [facility] Radiology Department [address] [place] [address] 2025 Procedure Pass [facility] Radiology Department [address] [place] [address] 03/27/2025 8:00 AM EST Ancillary Procedure [facility] Radiology Department [address] [place] [address] Elisabeth Olson PA-C [address] [place] [address] Kirstie@[facility] 03/27/2025 9:00 AM EST Nurse Only Electrocardiogram, [address] [address] Neville Ireland MD [address] [place] [address] Ranulfo@[facility] 03/27/2025 9:10 AM EST Blood Draw Laboratory Services, [address], 2nd [place] [address] Elisabeth Olson PA-C [address] [place] [address] Kirstie@[facility] 03/27/2025 10:00 AM EST Office Visit Center for Neuro-Oncology, [address], [address] [place] [address] Neville Ireland MD [address] [place] [address] Ranulfo@[facility] 03/27/2025 1:00 PM EST Office Visit Adult Palliative Care, [address], [address] [place] [address] North Johnson MD, MPH [address] [place] [address] Kamini@[facility] 03/28/2025 1:00 PM EST Appointment Department of Radiation Oncology [address] [place] [address] Betzaida Yan PA-C [address] [place] [address] 04/04/2025 1:00 PM EST Telemedicine Psychosocial Oncology, [address] [address] Jason Del Rio MD [address] [place] [address] Vilma@[email or web address] 04/24/2025 1:00 PM EST Ancillary Procedure [facility] [address] [place] [address] Neville Ireland MD [facility] [place] [address] Ranulfo@[facility] 04/24/2025 3:00 PM EST Office Visit Center for Neuro-Oncology, [facility] [place] [address] [place] [address], 9th [place] [address] Neville Ireland MD [address] [place] [address] Ranulfo@[facility] documented as of this encounter Visit Diagnoses Not on filedocumented in this encounter Care Teams Cloth Winder Relationship Specialty Start Date End Date Juan Griffith MD [address] [place] [address] PCP - General Endocrinology 03/07/18 07/11/24 Jeannine Brody MD [address] [place] [address] PCP - General Internal Medicine 07/12/24 07/31/24 Jeannine Brody MD [address] [place] [address] PCP - General Internal Medicine 08/01/24 Erik Greer MD [address] [facility] 120 [place] [phone] [email or web address] Urology 04/26/18 Cabrera Cox MD [address] [address] [place] [address] [email or web address] Urology 04/26/18 Leandro Arana MD, PhD [address] [place] [address], [facility]- [address] [place] [address] [email or web address] Radiation Oncology 04/26/18 Self-Referred, Patient Referring Physician 07/12/24 Samson Nichols MD [email or web address] u Radiation Oncology 08/04/24 Candice Lucas MD [address] [place] [address] Neurosurgery 08/04/24 Neville Ireland MD [address] [place] [address] Ranulfo@[facility] Medical Oncology 08/04/24 Bi, Cole Gutierrez MD, PhD [address] [place] [address] WBI@[facility] Neurosurgery 08/06/24 Elisabeth Olson PA-C [address] [place] [address] Kirstie@[email or web address] Physician Diabetes Manager 09/12/24 Travis Ibarra, [address] [address] Tayler@[facility] Flame Cutting Machine Operator Helper Oncology 12/05/24 documented as of this encounter Additional Source Comments The information contained in this document represents components of the legal health record. It is not the complete legal health record.[facility]
--- OUTSIDE RECORDS SUMMARY | 2025-03-20 14:48 | XMS_ITS | Encounter Summary ---
Author Organization [facility] Address [address] [facility] [address] [place] [address] Phone Care Team Providers Care Vertica Architect Name Role Phone Erik Greer MD Unavailable [phone] Cabrera Cox MD Unavailable [phone] Leandro rAana MD, PhD Unavailable Self-Referred, Patient Unavailable Unavailab Jeannine Manrique MD Primary Care Provider [phone] Samson Nichols MD Unavailable [phone] Candice Lucas MD Unavailable [phone] Neville Ireland MD Unavailable [phone] Bi, Cole Gutierrez MD, PhD Unavailable [phone] Elisabeth Olson PA-C Unavailable [phone] Travis Ibarra [facility] Unavailable [phone] Encounter Details Date Type Department Care Team (Late st Contact Info) Description 01/07/2025 Procedure Pass [facility] [address] [place] [address] Social History Tobacco Use Types Packs/Day Years [...] Procedure Pass [facility] Radiology Department [address] [place] [address] 2025 Procedure Pass [facility] Radiology Department [address] [place] [address] 03/27/2025 8:00 AM EST Ancillary Procedure [facility] Radiology Department [address] [place] [address] Elisabeth Olson PA-C [address] [place] [address] Kirstie@[facility] 03/27/2025 9:00 AM EST Nurse Only Electrocardiogram, [address] [address] Neville Ireland MD [address] [place] [address] Ranulfo@[facility] 03/27/2025 9:10 AM EST Blood Draw Laboratory Services, [address], 2nd [place] [address] Elisabeth Olson PA-C [address] [place] [address] [email or web address] 03/27/2025 10:00 AM EST Office Visit Center for Neuro-Oncology, [address], [address]th [place] [address] Neville Ireland MD [address] [place] [address] Ranulfo@[facility] 03/27/2025 1:00 PM EST Office Visit Adult Palliative Care, [address], [address]th [place] [address] North Johnson MD, MPH [address] [place] [address] Kamini@[facility] 03/28/2025 1:00 PM EST Appointment Department of Radiation Oncology [address] [place] [address] Betzaida Yan PA-C [address] [place] [address] [email or web address] 04/04/2025 1:00 PM EST Telemedicine Psychosocial Oncology, [address] [address] Jason Del Rio MD [address] [place] [address] Vilma@[facility] 04/24/2025 1:00 PM EST Ancillary Procedure [facility] [address] [place] [address] Neville Ireland MD [address] [place] [address] Ranulfo@[facility] 04/24/2025 3:00 PM EST Office Visit Center for Neuro-Oncology, [address], 9th [place] [address] Neville Ireland MD [address] [place] [address] Ranulfo@[facility] documented as of this encounter Visit Diagnoses Not on filedocumented in this encounter Additional Health Concerns Assessment Noted Time PHQ-9 Depression Total Score: 7 01/08/20 7:04 AM EDT PHQ-2 Depression Total Score: 5 01/08/20 7:04 AM EDT documented as of this encounter Care Teams Vertica Architect Relationship Specialty Start Date End Date Jeannine Brody MD [address] [place] [address] PCP - General Internal Medicine 08/01/24 Erik Greer MD [facility] 120 [place] [address] [email or web address] Urology 04/26/18 Cabrera Cox MD 100 [facility] 120 [place] [phone] PATRICK@[facility] Urology 04/26/18 Leandro Arana MD, PhD [address] [place] [address] [email or web address] Radiation Oncology 04/26/18 Self-Referred, Patient Referring Physician 07/12/24 Samson Nichols MD [address] [place] [address] [email or web address] u Radiation Oncology 08/04/24 Candice Lucas MD [address] [place] [address] Neurosurgery 08/04/24 Neville Ireland MD [address] [place] [address] Ranulfo@[email or web address] Medical Oncology 08/04/24 Cole Hassan MD, PhD [address] [place] [address] WBI@[email or web address] Neurosurgery 08/06/24 Elisabeth Olson PA-C [address] [place] [address] Kirstie@[facility] Physician Senior Office Support Assistant Sosa 09/12/24 Travis Ibarra, [address] [address] Tayler@[facility] Electricians Top Helper Oncology 12/05/24 documented as of this encounter Additional Source Comments The information contained in this document represents components of the legal health record. It is not the complete legal health record.[facility]
--- OUTSIDE RECORDS SUMMARY | 2025-03-20 14:48 | XMS_ITS | Encounter Summary ---
Author Organization [facility] Address [address] [place] [address] Phone Care Team Providers Care Tractor Driver Teamster Name Role Phone Erik Greer MD Unavailable [phone] Cabrera Cox MD Unavailable [phone] Leandro Arana MD, PhD Unavailable Self-Referred, Patient Unavailable Unavailab Jeannine Manrique MD Primary Care Provider Samson Nichols MD Unavailable [phone] Candice Lucas MD Unavailable [phone] Neville Ireland MD Unavailable [phone] Bi, Cole Gutierrez MD, PhD Unavailable [phone] Elisabeth Olson PA-C Unavailable [phone] Travis Ibarra [facility] Unavailable [phone] Encounter Details Date Type Department Care Team (Late st Contact Info) Description 02/28/2025 Procedure Pass [facility], Ct Scan - [address] [address] Social History Tobacco Use Types Packs/Day Years [...] got money to buy more. Never True 02/28/2025 Within the past 6 months the food we bought just didn't last and we didn't have enough money to get more. Never True Residential Stability Answer Date Recor ded What is your housing situation today? I have sirena sing 02/28/2025 How many times have you move d in the past 12 months? Zero (I did not move) 02/28/2025 Paying for Meds Answer Date Recorded Do you have trouble paying for medicines? No 02/28/2025 Paying Utility Bills Answer Date Record ed Do you have trouble paying your heating or elect ricity bill? No 02/28/2025 Transportation Answer Date Recorded Has the lack of transportati on kept you from medical appointments or from getting medications? No 02/28/2025 Digital Access Answer Date Recorded No 02/28/2025 Yes 02/28/2025 Do you have reliable internet access at home? Ye s 02/28/2025 Do you have a device (e.g., phone, tablet, computer) with a working camera? Yes 02/28/2025 Intimate Partner Violence Answer Date R ecorded Are you denied basic needs s uch as food, clothing, or medical care? No 02/28/2025 In the past 12 months have y ou been in a relationship with a person who hurts, threatens, or tries to control you? No 02/28/2025 Are you denied basic needs s uch as food, clothing, or medical care? No 02/28/2025 In the past 12 months have y ou been in a relationship with a person who hurts, threatens, or tries to control you? No 02/28/2025 Sex and Gender Information Value Date Recorded Sex Assigned at Male 07/12/2024 2:18 PM EST Legal Sex Male 10:08 AM EDT Gender Identity Male 07/12/2024 2:18 PM EST Sexual Orientation Straight 07/12/2024 2: 18 PM EST documented as of this encounter Functional Status * Calculated C-SSRS Risk Score (Lifetime/Recent) Answer Date of Assessment Author No Risk Indicated 02/28/2025 10:04 AM EDT Lelia Boles RN * Davis Suicide Severity Rating Scale (Screener/Recent Self-Report) Question Answer Date of Assessment Author 1. Wish to be (Past 1 Month) No 02/28/2025 10:04 AM EDT Lelia Collado, MONCHO 2. Non-Specific Active Suicidal Thoughts (Past 1 Month) No 02/28/2025 10:04 AM EDT Lelia Collado, MONCHO 6. Suicidal Behavior (Lifetime) No 02/28/2025 10:04 AM EDT Lelia Collado, MONCHO documented as of this encounter Plan of Treatment Upcoming Encounters Date Type Department Care Team (Late st Contact Info) Description 12/19/2024 Procedure Pass [facility] Radiology Department [address] [place] [id number] 2025 Procedure Pass [facility] Radiology Department [address] [place] [phone] 03/27/2025 8:00 AM EST Ancillary Procedure [facility] Radiology Department [address] [place] [phone] Elisabeth Olson PA-C [address] [place] [phone] [email or web address] 03/27/2025 9:00 AM EST Nurse Only Electrocardiogram, [facility] [address] Neville Ireland MD [address] [place] [phone] [email or web address] 03/27/2025 9:10 AM EST Blood Draw Laboratory Services, [address] Floor [place], [place] Elisabeth Olson PA-C [address] [place] [phone] [email or web address] 03/27/2025 10:00 AM EST Office Visit [facility], [address] [place] [address] Neville Ireland MD [address] [place] [phone] [email or web address] 03/27/2025 1:00 PM EST Office Visit Adult Palliative Care, [address] [place] [address] North Johnson MD, MPH [address] [place] [phone] [email or web address] 03/28/2025 1:00 PM EST Appointment Department of Radiation Oncology [address] [place] [phone] Betzaida Yan PA-C [address] [place] [phone] 04/04/2025 1:00 PM EST Telemedicine Psychosocial Oncology, [address] [address] Jason Del Rio MD [address] [place] [phone] [email or web address] 04/24/2025 1:00 PM EST Ancillary Procedure [facility] [address] [place] [phone] Neville Ireland MD [address] [place] [phone] [email or web address] 04/24/2025 3:00 PM EST Office Visit [facility], [address] [place] [address] Neville Ireland MD [address] [place] [phone] [email or web address] documented as of this encounter Visit Diagnoses Not on filedocumented in this encounter Additional Health Concerns Assessment Noted Time PHQ-9 Depression Total Score: 7 01/08/20 7:04 AM EDT PHQ-2 Depression Total Score: 0 02/20/20 9:22 AM EDT documented as of this encounter Care Teams Tractor Driver Teamster Relationship Specialty Start Date End Date Jeannine Brody MD [address] [place] [phone] PCP - General Internal Medicine 08/01/24 Erik Greer MD [address] [phone] [email or web address] Urology 04/26/18 Cabrera Cox MD [address] [phone] [email or web address] Urology 04/26/18 Leandro Arana MD, PhD [address] [place] [address], [facility] [address] [email or web address] Radiation Oncology 04/26/18 Self-Referred, Patient Referring Physician 07/12/24 Samson Nichols MD [address] [place] [phone] [email or web address] Radiation Oncology 08/04/24 Candice Lucas MD [address] [place] [phone] Neurosurgery 08/04/24 Neville Ireland MD [address] [place] [phone] [email or web address] Medical Oncology 08/04/24 BiCole MD, PhD [address] [place] [phone] [email or web address] Neurosurgery 08/06/24 Elisabeth Olson PA-C [address] [place] [address] [email or web address] Physician [facility] 09/12/24 Travis Ibarra, [address] [address] [email or web address] Sales Operations Oncology 12/05/24 documented as of this encounter Additional Source Comments The information contained in this document represents components of the legal health record. It is not the complete legal health record.[facility]
--- OUTSIDE RECORDS SUMMARY | 2025-03-20 14:48 | XMS_ITS | Clinical Summary ---
Author Organization [facility] Address [address] [place] [address] Phone Care Team Providers Care Ophthalmologist Name Role Phone Erik Greer MD Unavailable [phone] Cabrera Cox MD Unavailable [phone] Leandro Arana MD, PhD Unavailable Self-Referred, Patient Unavailable Unavailab Jeannine Manrique MD Primary Care Provider [phone] Samson Nichols MD Unavailable [phone] Candice Lucas MD Unavailable [phone] Neville Ireland MD Unavailable [phone] Bi, Cole Gutierrez MD, PhD Unavailable [phone] Elisabeth Olson PA-C Unavailable [phone] Travis Ibarra [facility] Unavailable [phone] Allergies Active Allergy Reactions Criticality Noted Date Comments Morphine Swelling,Nausea And Vomiting,Nausea and/or Vomiting Medium 04/17/2018 Medications memantine (NAMENDA) 10 MG tablet Take 1 tablet (10 mg total) by mouth 2 (two) times a day. For cognitive protection 2/2 brain directed radiation. 180 tablet 3 5 Active osimertinib (TAGRISSO) 80 mg tablet Take 1 tablet (80 mg total) by mouth daily. 28 tablet 2 5 Active sulfamethoxazo le-trimethopri m (BACTRIM,SEPTR A) 400-80 mg per tablet Take 1 tablet (80 mg of trimethoprim total) by mouth 3 (three) times a week on Tuesday, Tuesday, Tuesday. 12 tablet 1 5 Active ondansetron (ZOFRAN) 4 MG tablet Take 1 tablet (4 mg total) by mouth every 8 (eight) hours as needed for nausea. 30 tablet 3 5 Active methylphenidat e HCl (RITALIN) 5 MG tablet Take 1 tablet (5 mg total) by mouth 2 (two) times a day. 60 tablet 5 Active dexAMETHasone (DECADRON) 4 MG tablet Take 1 tablet (4 mg total) by mouth daily with breakfast. 60 tablet 1 5 Active levETIRAcetam (KEPPRA) 1000 MG IMMEDIATE release tablet Take 1 tablet (1,000 mg total) by mouth 2 (two) times a day. 180 tablet 5 025 Discontin ued(No longer taking) FLUoxetine (PROZAC) 20 MG capsule Take 1 capsule (20 mg total) by mouth daily. 30 capsule 2 5 025 Discontin ued(No longer taking) abemaciclib (VERZENIO) 150 mg tablet Take 1 tablet (150 mg total) by mouth 2 (two) times a day. 28 tablet 5 025 Discontin ued(No longer taking) osimertinib (TAGRISSO) 80 mg tablet Take 1 tablet (80 mg total) by mouth daily. 28 tablet 5 025 Discontin ued(Reord er) dexAMETHasone (DECADRON) 4 MG tablet Take 4 mg by mouth daily with breakfast. 025 Discontin ued(Reord er) Active Problems Problem Noted Date Diagnosed Date Radiation therapy induced brain necrosis 025 Former tobacco use 08/07/2024 DJD (degenerative joint disease), cervical 08/07 Decreased hearing 08/07/2024 Glioblastoma of occipital lobe 08/03/2024 Cancer Staging:Clinical stage from 07/16/2024:WHO G4- Signed by Samson Nichols MD on 08/07/2024 Prostate cancer Cancer Staging:Clinical stage from 04/26/2018: T1c, PSA Level: Less than 10, Ana <= 6, Stage Date: 04/26/18 - Unsigned [...] x24h only AM labs D/c home today Resolved Problems Problem Noted Date Diagnosed Date [...] 01/01/2025 Overview (06/01/2018): Occasional symptoms, no medications. Encounters Date Type Department Care Team Description 03/20/2025 Documentation [facility], [address], [address] [place] [address] Kaycee Covarrubias, RN Labs (orders) 03/20/2025 Orders Only [facility], [address], [address] [place] [address] Kaycee Covarrubias, MONCHO Glioblastoma (Primary Dx) 03/18/2025 Orders Only [facility], [address], [address] [place] [address] Kaycee Covarrubias, RN Glioblastoma of occipital lobe (Primary Dx) 03/14/2025 11:00 AM EDT Telemedicine Psych[facility] Oncology, [address] [address] Jason Del Rio MD Depression, unspecified depression type (Primary Dx); Adjustment disorder with mixed anxiety and depressed mood; Former tobacco use; Glioblastoma of occipital lobe; Neoplastic (malignant) related fatigue 03/14/2025 Orders Only [facility], [address], [address] [place] [address] Elisabeth Olson PA-C 03/13/2025 9:00 AM EDT Telemedicine [facility], [address], [address] [place] [address] Elisabeth Olson PA-C Reardon, David A, MD Glioblastoma of occipital lobe (Primary Dx) 03/12/2025 Orders Only [facility], [address], [address] [place] [address] Leny Dong RN 03/05/2025 Transcribe Orders [facility], [address], [address] [place] [address] Neville Ireland MD 03/04/2025 Orders Only [facility], [facility] [place] [address], [address] [place] [address] Elisabeth Olson PA-C 03/01/2025 Orders Only [facility], [facility] [address], [address] [place] [address] Elisabeth Olson PA-C 02/28/2025 9:51 AM EDT - 02/28/2025 2:09 PM EDT Emergency [facility] [address] [place] [address] Dawn Palomino MD, PhD Discharge Disposition: Home or Self Care 02/28/2025 Telephone Department of Radiation Oncology [address] [place] [address] Joann Gutierrez PA-C 02/28/2025 Telephone Virtual [address] [place] [address] Louann Harman, PharmD Chemo Teaching (Tagrisso) 02/28/2025 Telephone [facility], [address], [address] [place] [address] Elisabeth Olson PA-C 02/28/2025 Telephone Department of Radiation Oncology [address] [place] [address] Joann Gutierrez PA-C 02/28/2025 Procedure Pass [facility], [facility] [address] [place] [address] 02/28/2025 Orders Only [facility], [facility] [address], [address] [place] [address] Elisabeth Olson PA-C 02/27/2025 3:00 PM EDT Infusion Infusion Therapy Services [address], [address] [place] [address] Neville Ireland MD Leahy, Charles William, MONCHO Glioblastoma of occipital lobe 02/27/2025 2:30 PM EDT Nurse Only [facility], [address], [address] [place] [address] Neville Ireland MD Ruscio, Elisabeth Laura, MONCHO Glioblastoma of occipital lobe (Primary Dx) 02/27/2025 2:00 PM EDT Office Visit [facility], [address], [address] [place] [address] Elisabeth Olson PA-C Chukwueke, Ugonma N, MD, MPH Glioblastoma of occipital lobe (Primary Dx) 02/27/2025 7:26 AM EDT - 02/27/2025 11:59 PM EDT Hospital Encounter [address] [address] Neville Ireland MD Discharge Disposition: Home or Self Care 02/27/2025 Orders Only [facility], [address], [address] [place] [phone] Leny Dong, MONCHO Glioblastoma of occipital lobe (Primary Dx) 02/26/2025 11:00 AM EDT Telemedicine Psychosocial Oncology, [address] [address] Jason Del Rio MD Depression, unspecified depression type (Primary Dx); Adjustment disorder with mixed anxiety and depressed mood; Former tobacco use; Glioblastoma of occipital lobe 02/26/2025 Procedure Pass [address] [address] 02/26/2025 Documentation [facility], [address], [address] [place] [phone] Kaycee oMrgan NP 02/26/2025 Orders Only [facility], [facility] [address], 9th [place] [address] Kaycee Covarrubias, RN Glioblastoma of occipital lobe (Primary Dx) 02/24/2025 Telephone [facility] [address], 9th Floor, [address] [place] [address] Joe Acosta MD 02/22/2025 Telephone [facility], [facility] [address], [address]th [place] [address] Joe Acosta MD 02/19/2025 9:48 AM EDT - 02/19/2025 11:59 PM EDT Hospital Encounter [facility] [address] [place] [address] Samson Nichols MD Discharge Disposition: Home or Self Care 02/19/2025 8:30 AM EDT - 02/19/2025 9:47 AM EDT Hospital Encounter Department of Radiation Oncology [address] [place] [phone] Samson Nichols MD Discharge Disposition: Home or Self Care 02/19/2025 8:00 AM EDT - 02/19/2025 8:29 AM EDT Hospital Encounter Department of Radiation Oncology [address] [place] [address] Samson Nichols MD Discharge Disposition: Home or Self Care 02/19/2025 Documentation Psych[facility] Oncology, [address] [address] Belkys Luu, rip tailer Management 02/18/2025 Telephone Psychosocial Oncology, [address] [address] Car Mcadams MD 02/18/2025 Orders Only [facility], [address], [address] [place] [address] Ruscio, Leny Kalie, RN Glioblastoma of occipital lobe (Primary Dx) 02/18/2025 Orders Only [facility], [address], [address] [address] Leny Dong, RN Glioblastoma of occipital lobe (Primary Dx) 02/14/2025 6:41 AM EDT - 02/14/2025 11:59 PM EDT Hospital Encounter Department of Radiation Oncology [address] [place] [address] Samson Nichols MD Discharge Disposition: Home or Self Care 02/13/2025 Refill Department of Radiation Oncology [address] [place], [place] [phone] Samson Nichols MD Medication Refill 2025 11:30 AM EDT Infusion Infusion Therapy Services [address], [address] [address] Neville Ireland MD Leahy, Charles William, MONCHO Radiation therapy induced brain necrosis (Primary Dx) 2025 10:30 AM EDT Office Visit [facility], [address], [address] [place] [phone] Elisabeth Olson PA-C Glioblastoma of occipital lobe (Primary Dx) 2025 8:00 AM EDT Ancillary Procedure [facility] [address] [place] [phone] Neville Ireland MD Glioblastoma of occipital lobe 2025 Orders Only [facility], [address], [address] [address] Neville Ireland MD Glioblastoma of occipital lobe (Primary Dx) 02/08/2025 Documentation [facility], [address], [address] [place] [address] Elisabeth Olson PA-C 02/07/2025 10:30 AM EDT Office Visit Psych[facility] Oncology, [address] [address] Jason Del Rio MD Adjustment disorder with mixed anxiety and depressed mood (Primary Dx); Glioblastoma of occipital lobe; Former tobacco use 01/30/2025 Documentation [facility], [address], [address] [place] [address] Elisabeth Olson PA-C 01/28/2025 Telephone [facility], [address], [address] [place] [address] Leny Dong, MONCHO Symptom Management 01/23/2025 3:20 PM EDT - 01/23/2025 11:59 PM EDT Hospital Encounter MRI, [facility] [address] [place] [address] Neville Ireland MD Discharge Disposition: Home or Self Care 01/23/2025 12:30 PM EDT Infusion Infusion Therapy Services [address], [address] [place] [address] Neville Ireland MD Chapman, Carla, RN Radiation therapy induced brain necrosis (Primary Dx) 01/23/2025 11:30 AM EDT Office Visit [facility], [address], [address] [address] Elisabeth Olson PA-C Glioblastoma of occipital lobe (Primary Dx) 01/20/2025 Telephone [facility] [address] [place] [address] Manuelito Bustos MD, PhD 01/11/2025 1:30 PM EDT Infusion Infusion Therapy Services [address], [address] [address] Neville Ireland MD Landry, Kimberly, RN Radiation therapy induced brain necrosis (Primary Dx); Glioblastoma of occipital lobe 01/11/2025 11:30 AM EDT Office Visit [facility], [address], [address] [place] [address] Elisabeth Olson PA-C Glioblastoma of occipital lobe (Primary Dx) 01/09/2025 Refill [facility], [address], [address] [place] [address] Kaycee Morgan, SRIKANTH Medication Refill 01/08/2025 Orders Only [facility], [address], [address] [place] [address] Kaycee Morgan, SRIKANTH 01/07/2025 11:00 AM EDT Nurse Only [facility], [address], [address] [place] [address] Neville Ireland MD Ruscio, Elisabeth Laura, MONCHO 01/07/2025 9:30 AM EDT Nurse Only [facility], [address], [address] [place] [address] Neville Ireland MD Scott, Katarina, MONCHO Glioblastoma (Primary Dx) 01/07/2025 9:30 AM EDT Office Visit [facility], [address], [address] [place] [address] Neville Ireland MD Glioblastoma of occipital lobe (Primary Dx); Radiation therapy induced brain necrosis 01/07/2025 8:00 AM EDT Ancillary Procedure [facility] Radiology Department [address] [place] [address] Neville Ireland MD Glioblastoma 01/07/2025 Procedure Pass [facility] [address] [place] [address] 01/07/2025 Procedure Pass MRI, [facility] [address] [place] [address] 01/07/2025 Procedure Pass MRI, [facility] [address] [place] [address] 01/07/2025 Procedure Pass MRI, [facility] [address] [place] [address] 01/04/2025 Orders Only [facility], [address], [address] [place] [address] Elisabeth Olson PA-C Glioblastoma of occipital lobe (Primary Dx) 01/03/2025 Orders Only [facility], [address], [address] [place] [address] Elisabeth Olson PA-C 01/02/2025 Orders Only [facility], [address], [address] [place] [address] Elisabeth Olson PA-C 01/02/2025 Documentation [facility], [address], [address] [place] [address] Amy Arredondo RN 01/01/2025 12:55 PM EDT - 01/01/2025 11:59 PM EDT Hospital Encounter Department of Radiation Oncology [address] [place] [address] Samson Nichols MD Discharge Disposition: Home or Self Care 12/28/2024 Documentation Psychosocial Oncology, [address] [address] Jason Del Rio MD 12/25/2024 11:00 AM EDT Social Work Social Work Department, [address] [address] Neville Ireland MD Peirce, Benjamin D, PHOTOGRAPHIC SPECIALIST 12/24/2024 Orders Only [facility], [address], [address] [place] [address] Neville Ireland MD Glioblastoma of occipital lobe (Primary Dx) 12/24/2024 Orders Only [facility], [address], [address] [place] [address] Neville Ireland MD Glioblastoma of occipital lobe (Primary Dx) 12/19/2024 Orders Only [facility], [address], [address] [place] [address] Neville Ireland MD Glioblastoma of occipital lobe (Primary Dx) 12/19/2024 Refill [facility], [address], [address] [place] [address] Elisabeth Olson PA-C Medication Refill 12/18/2024 Documentation [facility], [address], [address] [place] [address] Kaycee Covarrubias, MONCHO Care Coordination (UNUM form) 10/24/2024 Procedure Pass [facility] [address] [place] [address] from Last 3 Months Immunizations Immunization Administration Dates Next Due INFLUENZA, SPLIT VIRUS, TRIVALENT W/ PRESERVATIV E IM 05/03/2022 Influenza High-Dose Quadrivalent Preservative Fr ee IM 05/03/2022 Pneumococcal conjugate PCV20 05/25/2022,05/25/19 23 Tdap 12/06/2019 Zoster recombinant 08/23/2022,05/25/2022 Family History Medical History Relation Comments Skin cancer Mother Relation Status Comments Mother Social History Tobacco Use Types Packs/Day Years Used Date Smoking Tobacco: Former Cigarettes 0.5 21 0 05/24/1970 - 1991 Smokeless Tobacco: Never Tobacco Cessation:Counseling Given: Not Answered Alcohol Use Standard Drinks/Week Comments Yes 4 [...] Orientation Straight 07/12/2024 2: 18 PM EST Last Filed Vital Signs Vital Sign Reading Time Taken Comments Blood Pressure 111/70 02/28/2025 2:09 PM EDT Pulse 59 02/28/2025 2:09 PM EDT Temperature 35.9 C (96.6 F) 02/28/2025 2:09 PM EDT Respiratory Rate 16 02/28/2025 2:09 PM EDT Oxygen Saturation 97% 02/28/2025 2:09 PM EDT Inhaled Oxygen Concentration - - Weight 65.1 kg (143 lb 6.9 oz) 02/27/2025 1:46 P M EDT Height 165.1 cm (5' 5 ) 02/27/2025 7:32 AM EDT Body Mass Index 23.87 02/27/2025 7:32 AM EDT Plan of Treatment Upcoming Encounters Date Type Department Care Team (Late st Contact Info) Description 12/19/2024 Procedure Pass [facility] Radiology Department [address] [place] [address] 2025 Procedure Pass [facility] Radiology Department [address] [place] [address] 03/27/2025 8:00 AM EST Ancillary Procedure [facility] Radiology Department [address] [place] [address] Elisabeth Olson PA-C [address] [place] [address] [email or web address] 03/27/2025 9:00 AM EST Nurse Only Electrocardiogram, [facility] [address] [address] Neville Ireland MD [address] [place] [address] [email or web address] 03/27/2025 9:10 AM EST Blood Draw Laboratory Services, [address], [address]nd [place] [address] Elisabeth Olson PA-C [address] [place] [address] [email or web address] 03/27/2025 10:00 AM EST Office Visit [facility], [address], [address] [place] [address] Neville Ireland MD [address] [place] [address] [email or web address] 03/27/2025 1:00 PM EST Office Visit Adult Palliative Care, [address], [address] [place] [address] North Johnson MD, MPH [address] [place] [phone] [email or web address] 03/28/2025 1:00 PM EST Appointment Department of Radiation Oncology [address] [place] [address] Betzaida Yan PA-C [address] [place] [address] 04/04/2025 1:00 PM EST Telemedicine Psychosocial Oncology, [address] [address] Jason Del Rio MD [address] [place] [address] [email or web address] 04/24/2025 1:00 PM EST Ancillary Procedure [facility] Rad[facility] Department [address] [place] [address] Neville Ireland MD [address] [place] [address] [email or web address] 04/24/2025 3:00 PM EST Office Visit [facility], [facility] [place] [address] [place] [address], [address] [place] [address] Neville Ireland MD [address] [place] [address] [email or web address] Health Maintenance Due Date Last Done Comments LIPID PANEL 1955 HEPATITIS C SCREENING 1973 COLOGUARD 02/12/2000 COLONOSCOPY 02/12/2000 COLORECTAL CANCER SCREENING 02/12/2000 FIT TEST 02/12/2000 FOBT 02/12/2000 SIGMOIDOSCOPY 02/12/2000 VIRTUAL COLONOSCOPY 02/12/2000 RSV VACCINE (1 - Risk 50-74 years 1-dose series) 2005 ABDOMINAL AORTIC ANEURYSM (AAA) SCREENING 02/12/2020 INFLUENZA VACCINE (#1) 2024 2, 05/03/2022 COVID-19 VACCINE ( - 2024-2 6 season) 2025 02/09/2021, 07/08/2020, 06/17/2020 DEPRESSION SCREENING 02/19/2026 02/19/2025, 01/07/2025 Adult Td,Tdap Booster 12/05/2029 12/06/2019 PNEUMOCOCCAL VACCINES (50+ years) Completed 05/25/2022, 05/25/2022 ZOSTER VACCINES Completed 08/23/2022, 05/25/2022 SMOKING STATUS SCREENING (On ce After 26 Yrs) Completed 02/26/2025 HEPATITIS A VACCINES Aged Out No long er eligible based on patient's age to complete this topic HIB VACCINES Aged Out No longer eligi ble based on patient's age to complete this topic MENINGOCOCCAL VACCINES (ACWY) Aged Out No longer eligible based on patient's age to complete this topic MENINGOCOCCAL VACCINES (B) Aged Out N o longer eligible based on patient's age to complete this topic Medical Devices Implanted Type Area Travel Registered Nurse Pacu Device Identifier Shelf Expiration Date Model / Serial / Lot Tooth Procedures Procedure Name Priority Date/Time Associated Diagnosis Comments OUTSIDE LAB 03/12/2025 OUTSIDE LAB 03/12/2025 OUTSIDE LAB 03/12/2025 OUTSIDE LAB 03/07/2025 OUTSIDE LAB 03/07/2025 OUTSIDE LAB 03/07/2025 CT HEAD WITHOUT CONTRAST Routine 02/28/2025 11:46 AM EDT LIPASE STAT 02/28/2025 11:12 AM EDT LFTS (HEPATIC PANEL) STAT 02/28/2025 11:12 AM EDT BASIC METABOLIC PANEL (BMP) STAT 02/28/2025 11:12 AM EDT CBC AND DIFFERENTIAL STAT 02/28/2025 11:12 AM EDT RAPID GROUP A STREP SCREEN Routine 02/27/2025 4:38 PM EDT Glioblastoma of occipital lobe ECG 12-LEAD Routine 02/27/2025 4:16 PM EDT Glioblastoma of occipital lobe LAB ADD ON Routine 02/27/2025 3:57 PM EDT Glioblastoma of occipital lobe MAGNESIUM Routine 02/27/2025 1:10 PM EDT COMPREHENSIVE METABOLIC PANEL (CMP) Routine 02/27/2025 1:10 PM EDT Glioblastoma of occipital lobe HC BLOOD COUNT COMPLETE AUTO&AUTO DIFRNTL WBC Routine 02/27/2025 1:10 PM EDT Glioblastoma of occipital lobe PULMONARY FUNCTION TEST Routine 02/27/2025 11:56 AM EDT Glioblastoma of occipital lobe MRI BRAIN (TUMOR) WITH AND WITHOUT CONTRAST Routine 02/27/2025 8:30 AM EDT Glioblastoma of occipital lobe COMPREHENSIVE METABOLIC PANEL (CMP) Routine 02/19/2025 9:57 AM EDT Glioblastoma of occipital lobe CBC AND DIFFERENTIAL Routine 02/19/2025 9:57 AM EDT Glioblastoma of occipital lobe TESTOSTERONE, TOTAL Routine 2025 9 :01 AM EDT Glioblastoma of occipital lobe FREE T4 Routine 2025 9:01 AM EDT Glioblastoma of occipital lobe THYROID STIMULATING HORMONE (TSH) Routine 2025 9:01 AM EDT Glioblastoma of occipital lobe COMPREHENSIVE METABOLIC PANEL (CMP) Routine 2025 9:01 AM EDT Glioblastoma of occipital lobe HC BLOOD COUNT COMPLETE AUTO&AUTO DIFRNTL WBC Routine 2025 9:01 AM EDT Glioblastoma of occipital lobe URINALYSIS Routine 2025 9:01 AM EDT Glioblastoma of occipital lobe MRI BRAIN (TUMOR) WITH AND WITHOUT CONTRAST Routine 2025 8:25 AM EDT Glioblastoma of occipital lobe OUTSIDE LAB 02/04/2025 OUTSIDE LAB 02/04/2025 OUTSIDE LAB 02/04/2025 OUTSIDE LAB 02/04/2025 OUTSIDE LAB 01/28/2025 OUTSIDE LAB 01/28/2025 OUTSIDE LAB 01/28/2025 MRI LUMBAR SPINE (NEURO) WITH AND WITHOUT CONTRAST Routine 01/23/2025 5:58 PM EDT Glioblastoma of occipital lobe MRI THORACIC SPINE (NEURO) WITH AND WITHOUT CONTRAST Routine 01/23/2025 5:58 PM EDT Glioblastoma of occipital lobe MRI CERVICAL SPINE (NEURO) WITH AND WITHOUT CONTRAST Routine 01/23/2025 5:58 PM EDT Glioblastoma of occipital lobe COMPREHENSIVE METABOLIC PANEL (CMP) Routine 01/23/2025 11:49 AM EDT Glioblastoma of occipital lobe HC BLOOD COUNT COMPLETE AUTO&AUTO DIFRNTL WBC Routine 01/23/2025 11:49 AM EDT Glioblastoma of occipital lobe OUTSIDE LAB 01/16/2025 OUTSIDE LAB 01/16/2025 OUTSIDE LAB 01/16/2025 COMPREHENSIVE METABOLIC PANEL (CMP) Routine 01/11/2025 10:48 AM EDT Glioblastoma of occipital lobe HC BLOOD COUNT COMPLETE AUTO&AUTO DIFRNTL WBC Routine 01/11/2025 10:48 AM EDT Glioblastoma of occipital lobe URINALYSIS Routine 01/07/2025 12:13 PM EDT Glioblastoma of occipital lobe LAB ADD ON Routine 01/07/2025 9:32 AM EDT Glioblastoma THYROID STIMULATING HORMONE (TSH) Routine 01/07/2025 9:19 AM EDT TESTOSTERONE, TOTAL Routine 01/07/2025 9 :19 AM EDT FREE T4 Routine 01/07/2025 9:19 AM EDT COMPREHENSIVE METABOLIC PANEL (CMP) Routine 01/07/2025 9:19 AM EDT Glioblastoma of occipital lobe HC BLOOD COUNT COMPLETE AUTO&AUTO DIFRNTL WBC Routine 01/07/2025 9:19 AM EDT Glioblastoma of occipital lobe BILIRUBIN, DIRECT Routine 01/07/2025 9:1 9 AM EDT Glioblastoma MRI BRAIN (TUMOR) WITH AND WITHOUT CONTRAST Routine 01/07/2025 8:15 AM EDT Glioblastoma OUTSIDE LAB 01/03/2025 OUTSIDE LAB 01/03/2025 OUTSIDE LAB 01/03/2025 OUTSIDE LAB 01/01/2025 OUTSIDE LAB 01/01/2025 OUTSIDE LAB 01/01/2025 from Last 3 Months Results * Outside Lab (03/12/2025) Only the most recent of22 resultswithin the time period is included. us Scanning Interface Provider LAB BLOOD BKR ORDERA BLES Final Result * CT HEAD WITHOUT CONTRAST (02/28/2025 11:46 AM EDT) Anatomical Region Laterality Modality Head Computed Tomogra phy 02/28/2025 11:4 8 AM EDT Impressions 02/28/2025 12:18 PM EDT Compared to brain MRI 02/27/2025: 1. No acute intracranial findings. 2. Similar postsurgical findings of left occipital craniotomy for tumor resection and subependymal tumor spread. ATTESTATION: I, Dolores River as teaching physician, have reviewed the images for this case and if necessary edited the report originally created by Carlos Manuel Mann. Narrative 02/28/2025 12:[address] HEAD WITHOUT CONTRAST Referring clinician's provided indication for this examination in Epic: * Headache, intracranial hemorrhage suspected; known GBM. MRI yesterday. Sudden osnet of worsening headache today. r/o bleed. TECHNIQUE: CT of the head was performed without intravenous contrast using tailored dose modulation techniques. Images were reconstructed in the axial, coronal, and sagittal planes. COMPARISON: CT HEAD WITH AND WITHOUT CONTRAST ; MRI BRAIN (TUMOR) WITH AND WITHOUT CONTRAST FINDINGS: Brain Parenchyma: Postsurgical findings of left occipital craniotomy for tumor resection, similar to recent MRI allowing for difference in techniques. Similar nodular soft tissue along the lateral, third and fourth ventricles, better evaluated on prior MRI. No midline shift, mass effect, parenchymal hemorrhage, or evidence of acute territorial infarct. Ventricular System and Extra-Axial Spaces: Similar effacement of the anterior horn of the right lateral ventricle. No extra-axial fluid collections. Basal cisterns are patent. No hydrocephalus. Osseous and Extracranial Structures: Left occipital craniotomy. No calvarial fracture or significant soft tissue hematoma. No significant paranasal sinus disease. Bilateral lens replacements. Procedure Note Dolores River MD - 02/28/2025 CT HEAD WITHOUT CONTRAST Referring clinician's provided indication for this examination in Epic: *Headache, intracranial hemorrhage suspected; known GBM. MRI yesterday.Sudden osnet of worsening headache today. r/o bleed. TECHNIQUE: CT of the head was performed without intravenous contrast usingtailored dose modulation techniques. Images were reconstructed in theaxial, coronal, and sagittal planes. COMPARISON: CT HEAD WITH AND WITHOUT CONTRAST ; MRI BRAIN(TUMOR) WITH AND WITHOUT CONTRAST FINDINGS: Brain Parenchyma: Postsurgical findings of left occipital craniotomy fortumor resection, similar to recent MRI allowing for difference intechniques. Similar nodular soft tissue along the lateral, third andfourth ventricles, better evaluated on prior MRI. No midline shift, masseffect, parenchymal hemorrhage, or evidence of acute territorial infarct. Ventricular System and Extra-Axial Spaces: Similar effacement of theanterior horn of the right lateral ventricle. No extra-axial fluidcollections. Basal cisterns are patent. No hydrocephalus. Osseous and Extracranial Structures: Left occipital craniotomy. Nocalvarial fracture or significant soft tissue hematoma. No significantparanasal sinus disease. Bilateral lens replacements. IMPRESSION: Compared to brain MRI 02/27/2025: 1. No acute intracranial findings. 2. Similar postsurgical findings of left occipital craniotomy for tumorresection and subependymal tumor spread. ATTESTATION: I, Dolores River as teaching physician, have reviewed theimages for this case and if necessary edited the report originally createdby Carlos Manuel Mann. us Dawn Palomino MD, PhD IMG CT HEAD/NECK Fi nal Result * LFTs (hepatic panel) (02/28/2025 11:12 AM EDT) ALKALINE PHOSPHATASE 63 39 - 117 U/L [facility] TOTAL BILIRUBIN 0.3 0.0 - 1.2 mg/dL [facility] DIRECT BILIRUBIN 0.1 0.0 - 0.2 mg/dL [facility] Bilirubin (Indirect) NOT CALCULATED 0 - 1.5 mg/dL [facility] AST 11 0 - 37 U/L [facility] ALT 8 0 - 40 U/L [facility] TOTAL PROTEIN 6.6 6.5 - 8.0 g/dL [facility] ALBUMIN 4.2 3.9 - 4.8 g/dL [facility] GLOBULIN 2.4 1 - 4.8 g/dL [facility] A/G Ratio 1.75 1.00 - 4.80 RATIO [facility] Blood 02/28/2025 11:1 2 AM EDT 02/28/2025 11:22 AM EDT us Dawn Palomino MD, PhD LAB BLOOD BKR ORDER THEO Final Result [facility] [address] [place] [address] * (ABNORMAL) CBC and differential (02/28/2025 11:12 AM EDT) Only the most recent of7 resultswithin the time period is included. WBC 4.05 4.00 - 11.00 K/uL [facility] RBC 4.30(L) 4.50 - 5.90 M/uL [facility] HGB 12.2(L) 13.5 - 17.5 g/dL [facility] HCT 36.3(L) 41.0 - 53.0 % [facility] PLT 140(L) 150 - 450 K/uL [facility] MCV 84.4 80.0 - 100.0 fL [facility] MCH 28.4 27.0 - 31.0 pg [facility] MCHC 33.6 32.0 - 36.0 g/dL [facility] RDW 15.9(H) 11.5 - 14.5 % [facility] MPV 10.4 8.4 - 12.0 fL [facility] NRBC 0.00 0.00 /100 WBCs [facility] ABSOLUTE NRBC 0.00 0.00 K/uL [facility] DIFF METHOD Auto [facility] NEUTS 74.3 48.0 - 76.0 % [facility] LYMPHS 11.6(L) 18.0 - 41.0 % [facility] MONOS 12.1(H) 4.0 - 11.0 % [facility] EOS 1.0 0.0 - 5.0 % [facility] BASOS 0.5 0.0 - 1.5 % [facility] Granulocytes, immature (%) 0.5 0.0 - 0.9 % [facility] ABSOLUTE NEUTS 3.01 1.92 - 7.60 K/uL [facility] ABSOLUTE LYMPHS 0.47(L) 0.72 - 4.10 K/uL [facility] ABSOLUTE MONOS 0.49 0.16 - 1.10 K/uL [facility] ABSOLUTE EOS 0.04 0.00 - 0.50 K/uL [facility] ABSOLUTE BASOS 0.02 0.00 - 0.15 K/uL [facility] Granulocytes, immature 0.02 0.00 - 0.09 K/uL [facility] Blood 02/28/2025 11:1 2 AM EDT 02/28/2025 11:22 AM EDT us Dawn Palomino MD, PhD LAB BLOOD BKR ORDER THEO Final Result Performing Organization Address City/[facility]/ZIP Co de Phone Number [address] [address] * Lipase (02/28/2025 11:12 AM EDT) LIPASE 18 16 - 63 U/L [facility] Blood 02/28/2025 11:1 2 AM EDT 02/28/2025 11:22 AM EDT us Dawn Palomino MD, PhD LAB BLOOD BKR ORDER THEO Final Result Performing Organization Address City/[facility]/ZIP Co de Phone Number [address] [address] * (ABNORMAL) Basic metabolic panel (02/28/2025 11:12 AM EDT) Pathologist [facility] SODIUM 144 133 - 146 mmol/L [facility] CHLORIDE 107 96 - 108 mmol/L [facility] POTASSIUM 4.0 3.3 - 5.1 mmol/L [facility] CO2 26 21 - 35 mmol/L [facility] BUN 18 6 - 19 mg/dL [facility] CREATININE 1.10 0.5 - 1.5 mg/dL [facility] GLUCOSE 101(H) 70 - 99 mg/dL [facility] CALCIUM 9.8 8.4 - 10.3 mg/dL [facility] EGFR 72 >59 mL/min/1.7 3m2 [facility] Comment:Estimated glomerular filtration rate calculated using the CKD-EPI refit equation. ANION GAP 15 10 - 20 mmol/L [facility] Blood 02/28/2025 11:1 2 AM EDT 02/28/2025 11:22 AM EDT us Dawn Palomino MD, PhD LAB BLOOD BKR ORDER THEO Final Result [facility] [address] [place] [address] * Rapid group A strep screen (02/27/2025 4:38 PM EDT) [facility] Special Requests None 02/27/2025 4:38 PM EDT [facility] DIRECT EXAM NEGATIVE for GROUP A BETA STREP SCREEN 02/27/2025 6:26 PM EDT [facility] Other (Throat) 02/27/2025 4: 38 PM EDT 02/27/2025 5:27 PM EDT us Neville Ireland MD LAB GENERAL ORDERABLES Final Result [facility] [address] [place] [address] * ECG 12-LEAD (02/27/2025 4:16 PM EDT) [facility] Ventricular Rate EKG/MIN 54 BPM [facility] Atrial Rate 54 BPM [facility] DC Interval 148 ms [facility] QRS Duration 90 ms [facility] QT Interval 408 ms [facility] QTC Interval 386 ms [facility] P [place] 62 degrees [facility] R Wave [place] 32 degrees [facility] T Wave [place] 35 degrees [facility] Other 02/27/2025 4:16 PM EDT Narrative [facility] - 02/28/2025 7:51 PM EDT Sinus bradycardia Nonspecific ST and T wave abnormality Abnormal ECG When compared with ECG of 20-Aug-2024 08:56, No significant change was found us Neville Ireland MD ECG ORDERABLES Final Result Performing Organization Address [facility] Co de Phone Number [email or web address] * Lab Add On: magnesium (02/27/2025 3:57 PM EDT) Only the most recent of2 resultswithin the time period is included. TEST REQUESTED MAGNESIUM [facility] Comments (Chemistry) TEST TO BE ADDED ON TO EXISTING SPECIMEN [facility] Blood 02/27/2025 3:57 PM EDT 02/27/2025 4:14 PM EDT us Neville Ireland MD LAB BLOOD ORDERABLES Edited R esult - Final Performing Organization Address City/[facility]/ZIP Co de Phone Number [facility] [address] [place] [address] * (ABNORMAL) Comprehensive metabolic panel (02/27/2025 1:10 PM EDT) Only the most recent of6 resultswithin the time period is included. SODIUM 142 136 - 145 mmol/L [facility] POTASSIUM 4.4 3.4 - 5.1 mmol/L [facility] CHLORIDE 105 98 - 107 mmol/L [facility] CO2 23 22 - 31 mmol/L [facility] BUN 17 6 - 23 mg/dL [facility] CREATININE 1.22(H) 0.50 - 1.20 mg/dL [facility] GLUCOSE 141(H) 70 - 100 mg/dL [facility] ALBUMIN 4.5 3.5 - 5.2 g/dL [facility] TOTAL PROTEIN 7.1 6.4 - 8.3 g/dL [facility] CALCIUM 10.1 8.8 - 10.7 mg/dL [facility] ALKALINE PHOSPHATASE 66 40 - 129 U/L [facility] TOTAL BILIRUBIN 0.3 0.2 - 1.2 mg/dL [facility] AST 14 <41 U/L [facility] ALT 9 <42 U/L [facility] GLOBULIN 2.6 2.3 - 4.2 g/dL [facility] EGFR 64 >59 mL/min/1.7 3m2 [facility] Comment:Estimated glomerular filtration rate calculated using the CKD-EPI refit equation. ANION GAP 14 7 - 17 mmol/L [facility] Blood 02/27/2025 1:10 PM EDT 02/27/2025 1:27 PM EDT us Neville Ireland MD LAB BLOOD BKR ORDERABLES Yancy l Result [facility] [address] [place] [address] * Magnesium (02/27/2025 1:10 PM EDT) MAGNESIUM 2.2 1.7 - 2.6 mg/dL [facility] 02/27/2025 1:10 PM EDT 02/27/2025 1:27 PM EDT Neville Ireland MD LAB BLOOD BKR ORDERABLES Yancy l Result [facility] [address] [place] [address] * Pulmonary Function Test Reason for Exam: Pre-Treatment Evaluation (DFCI); Type of PFT Test: DLCO, Spirometry without bronchodilator; Performing Location: [facility]; Please specify: [facility] (02/27/2025 11:56 AM EDT) Anatomical Region Laterality Modality Other Other 02/27/2025 11:5 6 AM EDT Narrative 02/28/2025 9:48 AM EDT [employer] Notes: Best acceptable spirometry reported.DLCO efforts are acceptable.Three Patient Identifiers (Name, , and Medical Record #) used to identify patient. Physician Interpretation: FEV1, FVC, and FEV1/VC are within normal limits. IMPRESSION: Normal Spirometry and diffusion capacity. us Neville Ireland MD PFT ORDERABLES Final Result * MRI BRAIN (TUMOR) WITH AND WITHOUT CONTRAST (02/27/2025 8:30 AM EDT) MGB IMG PLATFORM MATERIAL HANDLING SUPERVISOR COMMENT Worsening of disease. [facility] Anatomical Region Laterality Modality Head Magnetic Resonan ce 02/27/2025 8:5 4 AM EDT Impressions 02/27/2025 8:59 AM EDT Interval progression of disease. A clinically significant result was initiated on 02/27/2025 8:59 AM, Message ID [id number]. Narrative 02/27/2025 8:59 AM EDT MRI BRAIN (TUMOR) WITH AND WITHOUT CONTRAST Referring clinician's provided indication for this examination in [facility]: * Brain mass or lesion TECHNIQUE: Multi-sequence, multi-planar MRI of the brain was performed before and after intravenous contrast. COMPARISON: 2025 FINDINGS: Status post left occipital craniotomy with postop changes postop cavity. No acute hemorrhage seen. 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 Heterogeneous enhancement left occipital lobe is similar with slight increase size of left posterior temporal periatrial enhancement. MR perfusion shows associated elevated CBV. Procedure Note Valerie Barger MD - 02/27/2025 MRI BRAIN (TUMOR) WITH AND WITHOUT CONTRAST Referring clinician's provided indication for this examination in Epic: *Brain mass or lesion TECHNIQUE: Multi-sequence, multi-planar MRI of the brain was performedbefore and after intravenous contrast. COMPARISON: 2025 FINDINGS: Status post left occipital craniotomy with postop changes postop cavity.No acute hemorrhage seen. After contrast interval worsening of periventricular enhancing lymphomawith slight heterogeneous enhancement and subependymal involvement.Heterogeneous enhancement left occipital lobe is similar with slightincrease size of left posterior temporal periatrial enhancement. MR perfusion shows associated elevated CBV. IMPRESSION: Interval progression of disease. A clinically significant result was initiated on 02/27/2025 8:59 AM,Message ID [id number]. us Neville Ireland MD IMG MR HEAD/NECK Final Result * (ABNORMAL) Urinalysis (2025 9:01 AM EDT) Only the most recent of2 resultswithin the time period is included. COLOR Colorless(A ) Yellow [facility] CLARITY Clear Clear [facility] GLUCOSE NORMAL NORMAL [facility] BILI Negative Negative [facility] KETONES Negative Negative [facility] SPECIFIC GRAVITY 1.006 1.003 - 1.035 [facility] BLOOD Negative Negative [facility] PH 5.0 4.6 - 8.0 [facility] Protein-UA Negative Negative [facility] UROBILINOGEN NORMAL NORMAL [facility] NITRITE Negative Negative [facility] Leukocyte esterase, ur Negative Negative [facility] WBC <1 0 - 9 /hpf [facility] RBC None 0 - 2 /hpf [facility] BACTERIA None None /hpf [facility] Urine (Urine) 2025 9:0 1 AM EDT 2025 10:02 AM EDT us Neville Ireland MD LAB URINE ORDERABLES Final Re sult Performing Organization Address [facility] de Phone Number [facility] [address] [place] [phone] * TSH (2025 9:01 AM EDT) Only the most recent of2 resultswithin the time period is included. TSH 3.74 0.27 - 4.20 uIU/mL [facility] Blood 2025 9:01 AM EDT 2025 9:15 AM EDT us Neville Ireland MD LAB BLOOD BKR ORDERABLES Yancy l Result Performing Organization Address [facility] de Phone Number [facility] [address] [place] [phone] * Free T4 (2025 9:01 AM EDT) Only the most recent of2 resultswithin the time period is included. FREE T4 1.2 0.9 - 1.7 ng/dL [facility] Blood 2025 9:01 AM EDT 2025 9:15 AM EDT us Neville Ireland MD LAB BLOOD BKR ORDERABLES Yancy l Result Performing Organization Address [facility] de Phone Number [facility] [address] [place] [phone] * Testosterone, total (2025 9:01 AM EDT) Only the most recent of2 resultswithin the time period is included. TESTOSTERONE 485 193 - 740 ng/dL [facility] Blood 2025 9:01 AM EDT 2025 9:15 AM EDT us Neville Ireland MD LAB BLOOD BKR ORDERABLES Yancy sanon Result [facility] [address] [place] [address] * MRI BRAIN (TUMOR) WITH AND WITHOUT CONTRAST (2025 8:25 AM EDT) MGB IMG PLATFORM MATERIAL HANDLING SUPERVISOR COMMENT Interval progression of disease. [facility] Anatomical Region Laterality Modality Head Magnetic Resonan ce 2025 8:28 AM EDT Impressions 2025 9:04 AM EDT Interval progression of disease with increase in solid enhancing foci at the fornix and subependymal along the ventricles including fourth.Interval decrease in enhancement and edema at the postop site. A clinically significant result was initiated on 2025 9:04 AM, Message ID [id number]. ATTESTATION: Valerie Arshad, as teaching physician have reviewed the images, if any, for this patient's exam, and if necessary, have edited the report originally created by Toan Castillo. Narrative 2025 9:04 AM EDT MRI BRAIN (TUMOR) WITH AND WITHOUT CONTRAST Referring clinician's provided indication for this examination in Epic: * Brain mass or lesion TECHNIQUE: Multi-sequence, multi-planar MRI of the brain was performed before and after intravenous contrast. COMPARISON: MRI BRAIN (TUMOR) WITH AND WITHOUT CONTRAST FINDINGS: Brain Parenchyma: Status post left occipital craniotomy for tumor resection. Evolving heterogeneous, irregular enhancement at prior postop site is decreased from prior as well as associated edema. Interval increase in solid subependymal enhancement lateral ventricles including third and fourth as well as the fornix and corpus callosum. Similar associated scattered foci of susceptibility artifact. Increased size of focal, curvilinear enhancement in the medial right cerebellar hemisphere along the 4th ventricle. 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 No evidence of acute infarct or hemorrhage. Ventricular System and Extra-Axial Spaces: Similar caliber and effacement of the lateral ventricles with similar effacement of the right frontal horn and left atrium in particular due to adjacent enhancement. No evidence of midline shift or hydrocephalus. Extracranial Structures: Expected arterial flow signal is observed at the skull base. Bilateral lens replacements. Procedure Note Valerie Barger MD - 2025 MRI BRAIN (TUMOR) WITH AND WITHOUT CONTRAST Referring clinician's provided indication for this examination in Epic: *Brain mass or lesion TECHNIQUE: Multi-sequence, multi-planar MRI of the brain was performedbefore and after intravenous contrast. COMPARISON: MRI BRAIN (TUMOR) WITH AND WITHOUT CONTRAST FINDINGS: Brain Parenchyma: Status post left occipital craniotomy for tumorresection. Evolving heterogeneous, irregular enhancement at prior postopsite is decreased from prior as well as associated edema. Interval increase in solid subependymal enhancement lateral ventriclesincluding third and fourth as well as the fornix and corpus callosum.Similar associated scattered foci of susceptibility artifact. Increasedsize of focal, curvilinear enhancement in the medial right cerebellarhemisphere along the 4th ventricle. Unchanged developmental venous anomalyin the right periatrial region. No evidence of acute infarct or hemorrhage. Ventricular System and Extra-Axial Spaces: Similar caliber and effacementof the lateral ventricles with similar effacement of the right frontalhorn and left atrium in particular due to adjacent enhancement. Noevidence of midline shift or hydrocephalus. Extracranial Structures: Expected arterial flow signal is observed at theskull base. Bilateral lens replacements. IMPRESSION: Interval progression of disease with increase in solid enhancing foci atthe fornix and subependymal along the ventricles including fourth.Intervaldecrease in enhancement and edema at the postop site. A clinically significant result was initiated on 2025 9:04 AM,Message ID [id number]. ATTESTATION: Valerie Arshad, as teaching physician have reviewed theimages, if any, for this patient's exam, and if necessary, have edited thereport originally created by Toan Castillo. us Neville Ireland MD IMG MR HEAD/NECK Final Result * MRI THORACIC SPINE (NEURO) WITH AND WITHOUT CONTRAST (01/23/2025 5:58 PM EDT) Anatomical Region Laterality Modality T-spine Magnetic Resonan ce 01/24/2025 7:42 AM EDT Impressions 01/24/2025 11:33 AM EDT No abnormal intrathecal enhancement. ATTESTATION: Parag Arshad as teaching physician, have reviewed the images for this case and if necessary edited the report originally created by Jose Triplett. Narrative 01/24/2025 11:33 AM EDT MRI CERVICAL SPINE (NEURO) WITH AND WITHOUT CONTRAST, MRI LUMBAR SPINE (NEURO) WITH AND WITHOUT CONTRAST, MRI THORACIC SPINE (NEURO) WITH AND WITHOUT CONTRAST Referring clinician's provided indication for this examination in Epic: *Abnormal imaging TECHNIQUE: MRI CERVICAL SPINE (NEURO) WITH AND WITHOUT CONTRAST, MRI LUMBAR SPINE (NEURO) WITH AND WITHOUT CONTRAST, MRI THORACIC SPINE (NEURO) WITH AND WITHOUT CONTRAST Multi-sequence, multi-planar MRI of the cervical spine was performed with and without intravenous contrast. COMPARISON: MRI BRAIN (TUMOR) WITH AND WITHOUT CONTRAST FINDINGS: CERVICAL SPINE: Alignment and Vertebrae: Unchanged mild anterolisthesis of C7 on T1. No compression fracture. Marrow: Unchanged matter heterogeneity. Discs and Endplates: Loss of intervertebral disc space height at C3-4, C4-5, C5- 6, and C6-7, with associated posterior disc osteophyte complexes. Spinal Cord: No spinal cord compression or signal abnormality. Contrast: No abnormal enhancement. Soft Tissue: No prevertebral edema. Other: Intracranial findings are better assessed on brain MRI dated 01/07/2025. THORACIC SPINE: Alignment and Vertebrae: Mild levoconvex curvature. No compression fracture. Marrow: No suspicious bone marrow replacing lesion. Unchanged benign hemangiomas at T1 and T6.Unchanged matter heterogeneity. Discs and Endplates: Normal intervertebral disc heights. Spinal Cord: No spinal cord compression or signal abnormality. Contrast: No abnormal enhancement. Soft Tissue: No prevertebral edema. Other Findings: None. LUMBAR SPINE: Alignment and Vertebrae: Normal alignment. No compression fracture. Marrow: No suspicious bone marrow replacing lesion.Unchanged matter heterogeneity. Discs and Endplates: Normal intervertebral disc heights. Conus: Normal. Contrast: No abnormal enhancement. Soft Tissue: No prevertebral edema. Other Findings: None. Procedure Note Parag Chan MD - 01/24/2025 MRI CERVICAL SPINE (NEURO) WITH AND WITHOUT CONTRAST, MRI LUMBAR SPINE(NEURO) WITH AND WITHOUT CONTRAST, MRI THORACIC SPINE (NEURO) WITH ANDWITHOUT CONTRAST Referring clinician's provided indication for this examination in Epic:*Abnormal imaging TECHNIQUE: MRI CERVICAL SPINE (NEURO) WITH AND WITHOUT CONTRAST, MRILUMBAR SPINE (NEURO) WITH AND WITHOUT CONTRAST, MRI THORACIC SPINE (NEURO)WITH AND WITHOUT CONTRAST Multi-sequence, multi-planar MRI of the cervical spine was performed withand without intravenous contrast. COMPARISON: MRI BRAIN (TUMOR) WITH AND WITHOUT CONTRAST FINDINGS: CERVICAL SPINE: Alignment and Vertebrae: Unchanged mild anterolisthesis of C7 on T1. Nocompression fracture. Marrow: Unchanged matter heterogeneity. Discs and Endplates: Loss of intervertebral disc space height at C3-4,C4-5, C5- 6, and C6-7, with associated posterior disc osteophytecomplexes. Spinal Cord: No spinal cord compression or signal abnormality. Contrast: No abnormal enhancement. Soft Tissue: No prevertebral edema. Other: Intracranial findings are better assessed on brain MRI dated01/07/2025. THORACIC SPINE: Alignment and Vertebrae: Mild levoconvex curvature. No compressionfracture. Marrow: No suspicious bone marrow replacing lesion. Unchanged benignhemangiomas at T1 and T6.Unchanged matter heterogeneity. Discs and Endplates: Normal intervertebral disc heights. Spinal Cord: No spinal cord compression or signal abnormality. Contrast: No abnormal enhancement. Soft Tissue: No prevertebral edema. Other Findings: None. LUMBAR SPINE: Alignment and Vertebrae: Normal alignment. No compression fracture. Marrow: No suspicious bone marrow replacing lesion.Unchanged matterheterogeneity. Discs and Endplates: Normal intervertebral disc heights. Conus: Normal. Contrast: No abnormal enhancement. Soft Tissue: No prevertebral edema. Other Findings: None. IMPRESSION: No abnormal intrathecal enhancement. ATTESTATION: I, Parag Chan as teaching physician, have reviewed theimages for this case and if necessary edited the report originally createdby Jose Triplett. us Neville Ireland MD IMG MR XSPECIALTY Final Resul t * MRI LUMBAR SPINE (NEURO) WITH AND WITHOUT CONTRAST (01/23/2025 5:58 PM EDT) Anatomical Region Laterality Modality L-spine Magnetic Resonan ce 01/24/2025 7:42 AM EDT Impressions 01/24/2025 11:33 AM EDT No abnormal intrathecal enhancement. ATTESTATION: Parag Arshad as teaching physician, have reviewed the images for this case and if necessary edited the report originally created by Jose Triplett. Narrative 01/24/2025 11:33 AM EDT MRI CERVICAL SPINE (NEURO) WITH AND WITHOUT CONTRAST, MRI LUMBAR SPINE (NEURO) WITH AND WITHOUT CONTRAST, MRI THORACIC SPINE (NEURO) WITH AND WITHOUT CONTRAST Referring clinician's provided indication for this examination in Epic: *Abnormal imaging TECHNIQUE: MRI CERVICAL SPINE (NEURO) WITH AND WITHOUT CONTRAST, MRI LUMBAR SPINE (NEURO) WITH AND WITHOUT CONTRAST, MRI THORACIC SPINE (NEURO) WITH AND WITHOUT CONTRAST Multi-sequence, multi-planar MRI of the cervical spine was performed with and without intravenous contrast. COMPARISON: MRI BRAIN (TUMOR) WITH AND WITHOUT CONTRAST FINDINGS: CERVICAL SPINE: Alignment and Vertebrae: Unchanged mild anterolisthesis of C7 on T1. No compression fracture. Marrow: Unchanged matter heterogeneity. Discs and Endplates: Loss of intervertebral disc space height at C3-4, C4-5, C5- 6, and C6-7, with associated posterior disc osteophyte complexes. Spinal Cord: No spinal cord compression or signal abnormality. Contrast: No abnormal enhancement. Soft Tissue: No prevertebral edema. Other: Intracranial findings are better assessed on brain MRI dated 01/07/2025. THORACIC SPINE: Alignment and Vertebrae: Mild levoconvex curvature. No compression fracture. Marrow: No suspicious bone marrow replacing lesion. Unchanged benign hemangiomas at T1 and T6.Unchanged matter heterogeneity. Discs and Endplates: Normal intervertebral disc heights. Spinal Cord: No spinal cord compression or signal abnormality. Contrast: No abnormal enhancement. Soft Tissue: No prevertebral edema. Other Findings: None. LUMBAR SPINE: Alignment and Vertebrae: Normal alignment. No compression fracture. Marrow: No suspicious bone marrow replacing lesion.Unchanged matter heterogeneity. Discs and Endplates: Normal intervertebral disc heights. Conus: Normal. Contrast: No abnormal enhancement. Soft Tissue: No prevertebral edema. Other Findings: None. Procedure Note Parag Chan MD - 01/24/2025 MRI CERVICAL SPINE (NEURO) WITH AND WITHOUT CONTRAST, MRI LUMBAR SPINE(NEURO) WITH AND WITHOUT CONTRAST, MRI THORACIC SPINE (NEURO) WITH ANDWITHOUT CONTRAST Referring clinician's provided indication for this examination in Epic:*Abnormal imaging TECHNIQUE: MRI CERVICAL SPINE (NEURO) WITH AND WITHOUT CONTRAST, MRILUMBAR SPINE (NEURO) WITH AND WITHOUT CONTRAST, MRI THORACIC SPINE (NEURO)WITH AND WITHOUT CONTRAST Multi-sequence, multi-planar MRI of the cervical spine was performed withand without intravenous contrast. COMPARISON: MRI BRAIN (TUMOR) WITH AND WITHOUT CONTRAST FINDINGS: CERVICAL SPINE: Alignment and Vertebrae: Unchanged mild anterolisthesis of C7 on T1. Nocompression fracture. Marrow: Unchanged matter heterogeneity. Discs and Endplates: Loss of intervertebral disc space height at C3-4,C4-5, C5- 6, and C6-7, with associated posterior disc osteophytecomplexes. Spinal Cord: No spinal cord compression or signal abnormality. Contrast: No abnormal enhancement. Soft Tissue: No prevertebral edema. Other: Intracranial findings are better assessed on brain MRI dated01/07/2025. THORACIC SPINE: Alignment and Vertebrae: Mild levoconvex curvature. No compressionfracture. Marrow: No suspicious bone marrow replacing lesion. Unchanged benignhemangiomas at T1 and T6.Unchanged matter heterogeneity. Discs and Endplates: Normal intervertebral disc heights. Spinal Cord: No spinal cord compression or signal abnormality. Contrast: No abnormal enhancement. Soft Tissue: No prevertebral edema. Other Findings: None. LUMBAR SPINE: Alignment and Vertebrae: Normal alignment. No compression fracture. Marrow: No suspicious bone marrow replacing lesion.Unchanged matterheterogeneity. Discs and Endplates: Normal intervertebral disc heights. Conus: Normal. Contrast: No abnormal enhancement. Soft Tissue: No prevertebral edema. Other Findings: None. IMPRESSION: No abnormal intrathecal enhancement. ATTESTATION: I, Parag Chan as teaching physician, have reviewed theimages for this case and if necessary edited the report originally createdby Jose Triplett. us Neville Ireland MD IMG MR XSPECIALTY Final Resul t * MRI CERVICAL SPINE (NEURO) WITH AND WITHOUT CONTRAST (01/23/2025 5:58 PM EDT) Anatomical Region Laterality Modality C-spine Magnetic Resonan ce 01/24/2025 7:42 AM EDT Impressions 01/24/2025 11:33 AM EDT No abnormal intrathecal enhancement. ATTESTATION: I, Parag Chan as teaching physician, have reviewed the images for this case and if necessary edited the report originally created by Jose Triplett. Narrative 01/24/2025 11:33 AM EDT MRI CERVICAL SPINE (NEURO) WITH AND WITHOUT CONTRAST, MRI LUMBAR SPINE (NEURO) WITH AND WITHOUT CONTRAST, MRI THORACIC SPINE (NEURO) WITH AND WITHOUT CONTRAST Referring clinician's provided indication for this examination in Epic: *Abnormal imaging TECHNIQUE: MRI CERVICAL SPINE (NEURO) WITH AND WITHOUT CONTRAST, MRI LUMBAR SPINE (NEURO) WITH AND WITHOUT CONTRAST, MRI THORACIC SPINE (NEURO) WITH AND WITHOUT CONTRAST Multi-sequence, multi-planar MRI of the cervical spine was performed with and without intravenous contrast. COMPARISON: MRI BRAIN (TUMOR) WITH AND WITHOUT CONTRAST FINDINGS: CERVICAL SPINE: Alignment and Vertebrae: Unchanged mild anterolisthesis of C7 on T1. No compression fracture. Marrow: Unchanged matter heterogeneity. Discs and Endplates: Loss of intervertebral disc space height at C3-4, C4-5, C5- 6, and C6-7, with associated posterior disc osteophyte complexes. Spinal Cord: No spinal cord compression or signal abnormality. Contrast: No abnormal enhancement. Soft Tissue: No prevertebral edema. Other: Intracranial findings are better assessed on brain MRI dated 01/07/2025. THORACIC SPINE: Alignment and Vertebrae: Mild levoconvex curvature. No compression fracture. Marrow: No suspicious bone marrow replacing lesion. Unchanged benign hemangiomas at T1 and T6.Unchanged matter heterogeneity. Discs and Endplates: Normal intervertebral disc heights. Spinal Cord: No spinal cord compression or signal abnormality. Contrast: No abnormal enhancement. Soft Tissue: No prevertebral edema. Other Findings: None. LUMBAR SPINE: Alignment and Vertebrae: Normal alignment. No compression fracture. Marrow: No suspicious bone marrow replacing lesion.Unchanged matter heterogeneity. Discs and Endplates: Normal intervertebral disc heights. Conus: Normal. Contrast: No abnormal enhancement. Soft Tissue: No prevertebral edema. Other Findings: None. Procedure Note Parag Chan MD - 01/24/2025 MRI CERVICAL SPINE (NEURO) WITH AND WITHOUT CONTRAST, MRI LUMBAR SPINE(NEURO) WITH AND WITHOUT CONTRAST, MRI THORACIC SPINE (NEURO) WITH ANDWITHOUT CONTRAST Referring clinician's provided indication for this examination in Epic:*Abnormal imaging TECHNIQUE: MRI CERVICAL SPINE (NEURO) WITH AND WITHOUT CONTRAST, MRILUMBAR SPINE (NEURO) WITH AND WITHOUT CONTRAST, MRI THORACIC SPINE (NEURO)WITH AND WITHOUT CONTRAST Multi-sequence, multi-planar MRI of the cervical spine was performed withand without intravenous contrast. COMPARISON: MRI BRAIN (TUMOR) WITH AND WITHOUT CONTRAST 2024- FINDINGS: CERVICAL SPINE: Alignment and Vertebrae: Unchanged mild anterolisthesis of C7 on T1. Nocompression fracture. Marrow: Unchanged matter heterogeneity. Discs and Endplates: Loss of intervertebral disc space height at C3-4,C4-5, C5- 6, and C6-7, with associated posterior disc osteophytecomplexes. Spinal Cord: No spinal cord compression or signal abnormality. Contrast: No abnormal enhancement. Soft Tissue: No prevertebral edema. Other: Intracranial findings are better assessed on brain MRI dated01/07/2025. THORACIC SPINE: Alignment and Vertebrae: Mild levoconvex curvature. No compressionfracture. Marrow: No suspicious bone marrow replacing lesion. Unchanged benignhemangiomas at T1 and T6.Unchanged matter heterogeneity. Discs and Endplates: Normal intervertebral disc heights. Spinal Cord: No spinal cord compression or signal abnormality. Contrast: No abnormal enhancement. Soft Tissue: No prevertebral edema. Other Findings: None. LUMBAR SPINE: Alignment and Vertebrae: Normal alignment. No compression fracture. Marrow: No suspicious bone marrow replacing lesion.Unchanged matterheterogeneity. Discs and Endplates: Normal intervertebral disc heights. Conus: Normal. Contrast: No abnormal enhancement. Soft Tissue: No prevertebral edema. Other Findings: None. IMPRESSION: No abnormal intrathecal enhancement. ATTESTATION: I, Parag Chan as teaching physician, have reviewed theimages for this case and if necessary edited the report originally createdby Jose Triplett. us Neville Ireland MD IMG MR XSPECIALTY Final Resul t * Bilirubin, direct (01/07/2025 9:19 AM EDT) DIRECT BILIRUBIN 0.1 0.0 - 0.3 mg/dL [facility] LIC# [id number] Blood 01/07/2025 9:19 AM EDT 01/07/2025 9:23 AM EDT us Neville Ireland MD LAB BLOOD BKR ORDERABLES Yancy sanon Result [facility] LIC# [id number] [address] [place], [place] [address] * MRI BRAIN (TUMOR) WITH AND WITHOUT CONTRAST (01/07/2025 8:15 AM EDT) Anatomical Region Laterality Modality Head Magnetic Resonan ce 01/07/2025 9:27 AM EDT Impressions 01/07/2025 1:16 PM EDT Compared to 11/05/2024, 1. 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 2. Evolving heterogeneous irregular enhancement in the left occipitotemporal region, with overall slight increase in extent. Findings likely represent a combination of treatment effect and disease. 3. Slight interval effacement of the lateral ventricles, particularly the right frontal horn and left atrium, due to adjacent enhancement/mass effect. ATTESTATION: IJose, as teaching physician have reviewed the images, if any, for this patient's exam, and if necessary, have edited the report originally created by Alf Acharya. Narrative 01/07/2025 1:16 PM EDT MRI BRAIN (TUMOR) WITH AND WITHOUT CONTRAST Referring clinician's provided indication for this examination in [facility]: Research Study; with and without profusion, evaluation for clinical trial TECHNIQUE: MRI BRAIN (TUMOR) WITH AND WITHOUT CONTRAST Multi-sequence, multi-planar MRI of the brain was performed before and after intravenous contrast. COMPARISON: MRI BRAIN (TUMOR) WITH AND WITHOUT CONTRAST FINDINGS: Brain Parenchyma: Postsurgical findings of left occipital craniotomy for tumor resection. Evolving heterogeneous irregular enhancement in the left occipitotemporal region, with overall slight increase in extent, for example extending more anteriorly into the left temporal lobe and more superiorly in the left occipital lobe. No definite associated low diffusivity or elevated blood volume in this region. New confluent and nodular periventricular enhancement (including along the ependymal surface), for example along the body of the corpus callosum, right greater than left, the right caudothalamic groove, and the right caudate head. Scattered few foci of susceptibility artifact associated with this enhancement. New focal curvilinear enhancement in the medial right cerebellar hemisphere along the 4th ventricle (20:50). No acute infarct or space-occupying hemorrhage. 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 Ventricular System and Extra-Axial Spaces: Slight interval effacement of the lateral ventricles, particularly the right frontal horn and left atrium, due to adjacent enhancement. Extracranial Structures: Expected arterial flow signal is observed at the skull base. Bilateral lens replacements. Procedure Note Jose Dickerson MD, PhD - 01/07/2025 MRI BRAIN (TUMOR) WITH AND WITHOUT CONTRAST Referring clinician's provided indication for this examination in [facility]:Research Study; with and without profusion, evaluation for clinicaltrial TECHNIQUE: MRI BRAIN (TUMOR) WITH AND WITHOUT CONTRAST Multi-sequence, multi-planar MRI of the brain was performed before andafter intravenous contrast. COMPARISON: MRI BRAIN (TUMOR) WITH AND WITHOUT CONTRAST FINDINGS: Brain Parenchyma: Postsurgical findings of left occipital craniotomy for tumor resection.Evolving heterogeneous irregular enhancement in the left occipitotemporalregion, with overall slight increase in extent, for example extending moreanteriorly into the left temporal lobe and more superiorly in the leftoccipital lobe. No definite associated low diffusivity or elevated bloodvolume in this region. New confluent and nodular periventricular enhancement (including along theependymal surface), for example along the body of the corpus callosum,right greater than left, the right caudothalamic groove, and the rightcaudate head. Scattered few foci of susceptibility artifact associatedwith this enhancement. New focal curvilinear enhancement in the medialright cerebellar hemisphere along the 4th ventricle (20:50). No acute infarct or space-occupying hemorrhage. Unchanged developmentalvenous anomaly in the right periatrial region. Ventricular System and Extra-Axial Spaces: Slight interval effacement ofthe lateral ventricles, particularly the right frontal horn and leftatrium, due to adjacent enhancement. Extracranial Structures: Expected arterial flow signal is observed at theskull base. Bilateral lens replacements. IMPRESSION: Compared to 11/05/2024, 1. 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 2. Evolving heterogeneous irregular enhancement in the leftoccipitotemporal region, with overall slight increase in extent. Findingslikely represent a combination of treatment effect and disease. 3. Slight interval effacement of the lateral ventricles, particularly theright frontal horn and left atrium, due to adjacent enhancement/masseffect. ATTESTATION: Jose Arshad, as teaching physician have reviewed theimages, if any, for this patient's exam, and if necessary, have edited thereport originally created by Alf Acharya. Neville Ireland MD IMG MR HEAD/NECK Final Result from Last [address] [place] [address] [place] [address] [employer] O POS EPO MEDICARE PART A & B [facility] [employer] MEDICARE SUPPLEMENT [employer] O POS EPO MEDICARE PART A & B [facility] [employer] MEDICARE SUPPLEMENT [facility] POS EPO MEDICARE PART A & B [facility] MEDICARE SUPPLEMENT [facility] POS EPO MEDICARE PART A & B [facility] [employer] MEDICARE SUPPLEMENT [employer] O POS EPO MEDICARE PART A & B [facility] [employer] MEDICARE SUPPLEMENT [employer] O POS EPO MEDICARE PART A & B [facility] [employer] MEDICARE SUPPLEMENT Advance Directives For more information, please contact: [phone] (9AM - 5PM Yaz/[facility], Tuesday-Tuesday) * Full Code (Presumed) (Latest Code Status on File) Date Activated Date Inactivated Comments 06/22/2018 5:24 PM 06/23/2018 1:31 PM Care Teams Ophthalmologist Relationship Specialty Start Date End Date Jeannine Brody MD [address] [place] [address] [address] [place] [address] PCP - General Internal Medicine 08/01/24 Erik Greer MD [address] [place] [address] [address] [place] [address] [email or web address] Urology 04/26/18 Cabrera Cox MD [address] [facility] [address] [place] [address] [email or web address] Urology 04/26/18 Leandro Arana MD, PhD [address] [place], [place] [address] [address] [email or web address] Radiation Oncology 04/26/18 Self-Referred, Patient Referring Physician 07/12/24 Samson Nichols MD [address] [address] [email or web address] Radiation Oncology 08/04/24 Candice Lucas MD [address] [place] [address] Neurosurgery 08/04/24 Neville Ireland MD [address] [place] [address] [email or web address] Medical Oncology 08/04/24 BiCole MD, PhD [address] [place] [id number] [email or web address] Neurosurgery 08/06/24 Elisabeth Olson PA-C [address] [place] [address] [email or web address] Physician Roving Or Yarn Color Checker 09/12/24 Travis Ibarra, [address] [address] [email or web address] Configuration Management Consultant Oncology 12/05/24 Additional Source Comments The information contained in this document represents components of the legal health record. It is not the complete legal health record.[facility]
--- OUTSIDE RECORDS SUMMARY | 2025-03-20 14:49 | XMS_ITS | Encounter Summary ---
Author Organization [facility] Address [address] [facility] [facility] [address] [place] [address] Phone Care Team Providers Care Contact Lens Assistant Name Role Phone Erik Greer MD Unavailable [phone] Cabrera Cox MD Unavailable [phone] Leandro Arana MD, PhD Unavailable Self-Referred, Patient Unavailable Unavailab Jeannine Manrique MD Primary Care Provider [phone] Samson Nichols MD Unavailable [phone] Candice Lucas MD Unavailable [phone] Neville Ireland MD Unavailable [phone] Bi, Cole Gutierrez MD, PhD Unavailable [phone] Elisabeth Olson PA-C Unavailable [phone] Travis Ibarra [facility] Unavailable [phone] Encounter Details Date Type Department Care Team (Late st Contact Info) Description 03/18/2025 Orders Only [facility], [facility] [address] [place] [address], [address] [place] [address] Kaycee Covarrubias, RN [address] [place] [address] [email or web address] Glioblastoma of occipital lobe (Primary Dx) Social History Tobacco Use Types Packs/Day Years [...] st Contact Info) Description 12/19/2024 Procedure Pass [facility] Radiology Department [address] [place] [phone] Procedure Pass [facility] Radiology Department [address] [place] [phone] 03/27/2025 8:00 AM EST Ancillary Procedure [facility] Radiology Department [address] [place] [phone] Elisabeth Olson PA-C [address] [place] [phone] [email or web address] 03/27/2025 9:00 AM EST Nurse Only Electrocardiogram, [address] [address] Neville Ireland MD [address] [place] [id number] [email or web address] 03/27/2025 9:10 AM EST Blood Draw Laboratory Services, [address], [address] [place] [address] Elisabeth Olson PA-C [address] [place] [phone] [email or web address] 03/27/2025 10:00 AM EST Office Visit Center for Neuro-Oncology, [address], [address] [place] [address] Neville Ireland MD [address] [place] [id number] [email or web address] 03/27/2025 1:00 PM EST Office Visit Adult Palliative Care, [address] [place] [address] North Johnson MD, MPH [address] [place] [phone] [email or web address] 03/28/2025 1:00 PM EST Appointment Department of Radiation Oncology [address] [place] [address] Betzaida Yan PA-C [address] [place] [address] 04/04/2025 1:00 PM EST Telemedicine Psychosocial Oncology, [address] [address] Jason Del Rio MD [address] [place] [address] [email or web address] 04/24/2025 1:00 PM EST Ancillary Procedure [facility] [address] [place] [address] Neville Ireland MD [address] [place] [phone] [email or web address] 04/24/2025 3:00 PM EST Office Visit Center for Neuro-Oncology, [facility] [address] [place] [address], [address] [place] [address] Neville Ireland MD [address] [place] [phone] [email or web address] Scheduled Orders Name Type Priority Associated Diagnoses Orde r Schedule ECG 12-LEAD ECG Routine Glioblastoma of occipital lobe Expected: 03/18/2025, Expires: 06/18/2025 documented as of this encounter Visit Diagnoses Diagnosis Glioblastoma of occipital lobe- Primary documented in this encounter Additional Health Concerns Assessment Noted Time PHQ-9 Depression Total Score: 7 01/08/20 7:04 AM EDT PHQ-2 Depression Total Score: 0 02/20/20 9:22 AM EDT documented as of this encounter Care Teams Contact Lens Assistant Relationship Specialty Start Date End Date Jeannine Brody MD [address] [place] [address] PCP - General Internal Medicine 08/01/24 Erik Greer MD [address] [place] [address] [email or web address] Urology 04/26/18 Cabrera Cox MD [address] [place] [address] [email or web address] Urology 04/26/18 Leandro Arana MD, PhD [address] [place] [address], [facility] [place] [address] [email or web address] Radiation Oncology 04/26/18 Self-Referred, Patient Referring Physician 07/12/24 Samson Nichols MD [address] [address] [email or web address] u Radiation Oncology 08/04/24 Candice Lucas MD [address] [place] [address] Neurosurgery 08/04/24 Neville Ireland MD [address] [place] [phone] [email or web address] Medical Oncology 08/04/24 Bi, Cole Gutierrez MD, PhD [address] [place] [address] [email or web address] Neurosurgery 08/06/24 Elisabeth Olson PA-C [address] [place] [address] [email or web address] Physician Soap Slabber 09/12/24 Travis Ibarra, [address] [address] [email or web address] Kettle Girl Oncology 12/05/24 documented as of this encounter Additional Source Comments The information contained in this document represents components of the legal health record. It is not the complete legal health record.[facility]
--- OUTSIDE RECORDS SUMMARY | 2025-03-20 14:49 | XMS_ITS | Encounter Summary ---
Author Organization [facility] Address [address] [facility] [address] [place] [address] Phone Care Team Providers Care Insurance And Financial Services Agent Name Role Phone Erik Greer MD Unavailable [phone] Cabrera Cox MD Unavailable [phone] Leandro Arana MD, PhD Unavailable Self-Referred, Patient Unavailable Unavailab Jeannine Manrique MD Primary Care Provider [phone] Samson Nichols MD Unavailable [phone] Candice Lucas MD Unavailable [phone] Neville Ireland MD Unavailable [phone] Bi, Cole Gutierrez MD, PhD Unavailable +[phone] Elisabeth Olson PA-C Unavailable +[phone] Travis Ibarra [facility] Unavailable [phone] Encounter Details Date Type Department Care Team (Late st Contact Info) Description 03/20/2025 Orders Only [facility], [facility] [place] [address] [facility], 9th [place] [address] Kaycee Covarrubias, RN [address] [place] [address] [email or web address] Glioblastoma (Primary Dx) Social History Tobacco Use Types [...] st Contact Info) Description 12/19/2024 Procedure Pass [facility] Radiology Department [address] [place] [address] 2025 Procedure Pass [facility] Radiology Department [address] [place] [address] 03/27/2025 8:00 AM EST Ancillary Procedure [facility] Radiology Department [address] [place] [address] Elisabeth Olson PA-C [address] [place] [address] Kirstie@[facility] 03/27/2025 9:00 AM EST Nurse Only Electrocardiogram, [address] [address] Neville Ireland MD [address] [place] [address] Ranulfo@[facility] 03/27/2025 9:10 AM EST Blood Draw Laboratory Services, [address], 2nd [place] [address] Elisabeth Olson PA-C [address] [place] [address] Kirstie@[facility] 03/27/2025 10:00 AM EST Office Visit Center for Neuro-Oncology, [address], 9th [place] [address] Neville Ireland MD [address] [place] [address] Ranulfo@[facility] 03/27/2025 1:00 PM EST Office Visit Adult Palliative Care, [address], 11th [place] [address] North Johnson MD, MPH [address] [place] [address] Kamini@[facility] 03/28/2025 1:00 PM EST Appointment Department of Radiation Oncology [address] [place] [address] Betzaida Yan PA-C [address] [place] [address] 04/04/2025 1:00 PM EST Telemedicine Psychosocial Oncology, [address] [address] Jason Del Rio MD [address] [place] [address] Vilma@[email or web address] 04/24/2025 1:00 PM EST Ancillary Procedure [facility] [address] [place] [address] Neville Ireland MD [address] [place] [address] Ranulfo@[facility] 04/24/2025 3:00 PM EST Office Visit Center for Neuro-Oncology, [facility] [place] [address] [facility] [address] [facility], 9th [place] [address] Neville Ireland MD [address] [place] [address] Ranulfo@[facility] documented as of this encounter Visit Diagnoses Diagnosis Glioblastoma- Primary Malignant neoplasm of brain, unspecified site documented in this encounter Additional Health Concerns Assessment Noted Time PHQ-9 Depression Total Score: 7 01/08/20 7:04 AM EDT PHQ-2 Depression Total Score: 0 02/20/20 9:22 AM EDT documented as of this encounter Care Teams Insurance And Financial Services Agent Relationship Specialty Start Date End Date Jeannine Brody MD [address] [place] [address] PCP - General Internal Medicine 08/01/24 Erik Greer MD [address] [phone] [email or web address] Urology 04/26/18 Cabrera Cox MD [address] [phone] [email or web address]@[facility] Urology 04/26/18 Leandro Arana MD, PhD [address] [place] [address] [email or web address] Radiation Oncology 04/26/18 Self-Referred, Patient Referring Physician 07/12/24 Samson Nichols MD [address] [address] [email or web address] u Radiation Oncology 08/04/24 Candice Lucas MD [address] [place] [address] Neurosurgery 08/04/24 Neville Ireland MD [address] [place] [address] Ranulfo@[facility] Medical Oncology 08/04/24 BiCole MD, PhD 60 [place] [address] WBI@[facility] Neurosurgery 08/06/24 Elisabeth Olson PA-C [address] [place] [address] Kirstie@[facility] Physician Automobile Contract Clerk 09/12/24 Travis Ibarra, [address] [address] Tayler@[facility] International Tax Manager Oncology 12/05/24 documented as of this encounter Additional Source Comments The information contained in this document represents components of the legal health record. It is not the complete legal health record.[facility]
--- OUTSIDE RECORDS SUMMARY | 2025-03-20 14:49 | XMS_ITS | Encounter Summary ---
Author Organization [facility] Address [address] [place], [place] [address] [place] [address] Phone Care Team Providers Care Fire Sprinkler Installer Name Role Phone Juan Griffith MD Primary Care Provider [phone] Eirk Greer MD Unavailable [phone] Cabrera Cox MD Unavailable [phone] Leandro Arana MD, PhD Unavailable Jeannine Brody MD Primary Care Provider [phone] Self-Referred, Patient Unavailable Unavailab Jeannine Manrique MD Primary Care Provider [phone] Samson Nichols MD Unavailable [phone] Candice Lucas MD Unavailable [phone] Neville Ireland MD Unavailable [phone] Cole Hassan MD, PhD Unavailable [phone] Elisabeth Olson PA-C Unavailable [phone] Travis Ibarra [facility] Unavailable [phone] Encounter Details Date Type Department Care Team (Late st Contact Info) Description 04/28/[address] [facility] Urology 45 [facility]2-3 [place] [address] Cabrera Cox MD 45 [facility]. [facility] 11-3 [place] [address] [email or web address]@[email or web address] Social History Tobacco Use Types [...] st Contact Info) Description 12/19/2024 Procedure Pass [facility] Radiology Department [address] [place] [address] 2025 Procedure Pass [facility] Radiology Department [address] [place] [address] 03/27/2025 8:00 AM EST Ancillary Procedure [facility] Radiology Department [address] [place] [address] Elisabeth Olson PA-C [address] [place] [address] Kirstie@[facility] 03/27/2025 9:00 AM EST Nurse Only Electrocardiogram, [address] [address] Neville Ireland MD [address] [place] [address] Ranulfo@[facility] 03/27/2025 9:10 AM EST Blood Draw Laboratory Services, [address], 2nd [place] [address] Elisabeth Olson PA-C [address] [place] [address] Kirstie@[facility] 03/27/2025 10:00 AM EST Office Visit Center for Neuro-Oncology, [address], 9th [place] [address] Neville Ireland MD [address] [place] [address] Ranulfo@[facility] 03/27/2025 1:00 PM EST Office Visit Adult Palliative Care, [address], [address]th [place] [address] North Johnson MD, MPH [address] [place] [address] Kamini@[facility] 03/28/2025 1:00 PM EST Appointment Department of Radiation Oncology [address] [place] [address] Betzaida Yan PA-C [address] [place] [address] 04/04/2025 1:00 PM EST Telemedicine Psychosocial Oncology, [address] [address] Jason Del Rio MD [address] [place] [address] [email or web address] 04/24/2025 1:00 PM EST Ancillary Procedure [facility] [address] [place] [address] Neville Ireland MD [facility] [address] Ranulfo@[facility] 04/24/2025 3:00 PM EST Office Visit Center for Neuro-Oncology, [facility] [place] [address] [place] [address], 9th [place] [address] Neville Ireland MD 450 [place] [address] Ranulfo@[facility] documented as of this encounter Visit Diagnoses Not on filedocumented in this encounter Care Teams Fire Sprinkler Installer Relationship Specialty Start Date End Date Juan Griffith MD [address] [place] [address] PCP - General Endocrinology 03/07/18 07/11/24 Jeannnie Brody MD [address] [place] [address] PCP - General Internal Medicine 07/12/24 07/31/24 Jeannien Brody MD [address] [place] [address] PCP - General Internal Medicine 08/01/24 Erik Greer MD [address] [facility] [address] [place] [phone] [email or web address] Urology 04/26/18 Cabrera Cox MD [address] [place] [phone] [email or web address] Urology 04/26/18 Leandro Arana MD, PhD [address] [place] [address], [facility]- L2 [place] [address] [email or web address] Radiation Oncology 04/26/18 Self-Referred, Patient Referring Physician 07/12/24 Samson Nichols MD [email or web address] u Radiation Oncology 08/04/24 Candice Lucas MD [address] [place] [address] Neurosurgery 08/04/24 Neville Ireland MD [address] [place] [address] Ranulfo@[facility] Medical Oncology 08/04/24 Bi, Cole Gutierrez MD, PhD [address] [place] [address] WBI@[facility] Neurosurgery 08/06/24 Elisabeth Olson PA-C [address] [place] [address] Kirstie@[facility] Physician Estate Planning Director 09/12/24 Travis Ibarra, [address] [address] Tayler@[facility] Care Transitions Nurse Oncology 12/05/24 documented as of this encounter Additional Source Comments The information contained in this document represents components of the legal health record. It is not the complete legal health record.[facility]
--- OUTSIDE RECORDS SUMMARY | 2025-03-20 14:49 | XMS_ITS | Encounter Summary ---
Author Organization [facility] Address [address] [place] [address] Phone Care Team Providers Care Elementary School Director Name Role Phone Erik Greer MD Unavailable [phone] Cabrera Cox MD Unavailable [phone] Leandro Arana MD, PhD Unavailable Self-Referred, Patient Unavailable Unavailab Jeannine Manrique MD Primary Care Provider Samson Nichols MD Unavailable [phone] Candice Lucas MD Unavailable [phone] Neville Ireland MD Unavailable [phone] Bi, Cole Gutierrez MD, PhD Unavailable [phone] Elisabeth Olson PA-C Unavailable [phone] Travis Ibarra [facility] Unavailable [phone] Encounter Details Date Type Department Care Team (Late st Contact Info) Description 02/26/2025 Procedure Pass [facility] [employer] [employer] [place] [address] [place] [address] Social History Tobacco Use Types Packs/Day Years [...] your housing situation today? I have sirena payne 02/28/2025 How many times have you move [...] PM EST documented as of this encounter Last Filed Vital Signs Vital Sign Reading Time Taken Comments Blood Pressure - - Pulse - - Temperature - - Respiratory Rate - - Oxygen Saturation - - Inhaled Oxygen Concentration - - Weight 64.4 kg (142 lb) 02/27/2025 7:32 AM EDT Height 165.1 cm (5' 5 ) 02/27/2025 7:32 AM EDT Body Mass Index 23.63 02/27/2025 7:32 AM EDT documented in this encounter Functional Status * Calculated C-SSRS Risk Score (Lifetime/Recent) Answer Date of Assessment Author No Risk Indicated 02/28/2025 10:04 AM EDT Lelia Boles RN * Greig Suicide Severity Rating Scale (Screener/Recent Self-Report) Question [...] st Contact Info) Description 12/19/2024 Procedure Pass [facility] Radiology Department [address] [place] [address] 2025 Procedure Pass [facility] Radiology Department [address] [place] [address] 03/27/2025 8:00 AM EST Ancillary Procedure [facility] Radiology Department [address] [place] [address] Elisabeth Olson PA-C [address] [place] [address] Kirstie@[facility] 03/27/2025 9:00 AM EST Nurse Only Electrocardiogram, [address] Neville Ireland MD [address] [place] [address] Ranulfo@[facility] 03/27/2025 9:10 AM EST Blood Draw Laboratory Services, [address] 2nd [place] [address] Elisabeth Olson PA-C [address] [place] [address] Kirstie@[facility] 03/27/2025 10:00 AM EST Office Visit Center for Neuro-Oncology, [address], [address]th [place] [address] Neville Ireland MD [address] [place] [address] Ranulfo@[facility] 03/27/2025 1:00 PM EST Office Visit Adult Palliative Care, [address], [address]th [place] [address] North Johnson MD, MPH [address] [place] [address] Kamini@[facility] 03/28/2025 1:00 PM EST Appointment Department of Radiation Oncology [address] [place] [address] Betzaida Yan PA-C [address] [place] [address] 04/04/2025 1:00 PM EST Telemedicine Psychosocial Oncology, [address] [address] Jason Del Rio MD [address] [place] [address] Vilma@[email or web address] 04/24/2025 1:00 PM EST Ancillary Procedure [facility] [address] [place] [address] Neville Ireland MD [address] [place] [address] Ranulfo@[facility] 04/24/2025 3:00 PM EST Office Visit Center for Neuro-Oncology, [address], 9th [place] [address] Neville Ireland MD [address] [place] [address] Ranulfo@[facility] documented as of this encounter Visit Diagnoses Not on filedocumented in this encounter Additional Health Concerns Assessment Noted Time PHQ-9 Depression Total Score: 7 01/08/20 25 7:04 AM EDT PHQ-2 Depression Total Score: 0 02/20/20 9:22 AM EDT documented as of this encounter Care Teams Elementary School Director Relationship Specialty Start Date End Date Jeannine Brody MD [address] [place] [address] PCP - General Internal Medicine 08/01/24 Erik Greer MD [address] [place] [phone] [email or web address] g Urology 04/26/18 Cabrera Cox MD [address] [place] [address] [address] [place] [address] [email or web address] Urology 04/26/18 Leandro Arana MD, PhD [address] [place] [address] [email or web address] Radiation Oncology 04/26/18 Self-Referred, Patient Referring Physician 07/12/24 Samson Nichols MD [address] [place] [address] [email or web address]. u Radiation Oncology 08/04/24 Candice Lucas MD [address] [place] [address] Neurosurgery 08/04/24 Neville Ireland MD [address] [place] [address] Ranulfo@[email or web address] Medical Oncology 08/04/24 Bi, Cole Gutierrez MD, PhD [address] [place] [address] WBI@[facility] Neurosurgery 08/06/24 Elisabeth Olson PA-C [address] [place] [address] Kirstie@[facility] Physician Professional Housing Consultant 09/12/24 Travis Ibarra, [place] [phone] Tayler@[email or web address] Credentialing Manager Oncology 12/05/24 documented as of this encounter Additional Source Comments The information contained in this document represents components of the legal health record. It is not the complete legal health record.[facility]
--- OUTSIDE RECORDS SUMMARY | 2025-03-20 14:49 | XMS_ITS | Encounter Summary ---
Author Organization [facility] Address [address] [facility] [facility] [address] [place] [address] Phone Care Team Providers Care Diamond Blender Name Role Phone Juan Griffith MD Primary Care Provider [phone] Self-Referred, Patient Unavailable Unavailab Erik Payne MD Unavailable +[phone] Cabrera Cox MD Unavailable [phone] Leandro Arana MD, PhD Unavailable Jeannine Brody MD Primary Care Provider [phone] Self-Referred, Patient Unavailable Unavailab Jeannine Manrique MD Primary Care Provider [phone] Samson Nichols MD Unavailable [phone] Candice Lucas MD Unavailable [phone] Neville Ireland MD Unavailable [phone] Bi, Cole Gutierrez MD, PhD Unavailable [phone] Elisabeth Olson PA-C Unavailable [phone] Travis Ibarra [facility] Unavailable [phone] Encounter Details Date Type Department Care Team (Late st Contact Info) Description 04/26/2018 Procedure Pass [facility] MR Imaging, [place] [address] [place] [address] Social History Tobacco Use Types Packs/Day Years [...] st Contact Info) Description 12/19/2024 Procedure Pass [facility] Radiology Department [address] [place] [address] 2025 Procedure Pass [facility] Radiology Department [address] [place] [address] 03/27/2025 8:00 AM EST Ancillary Procedure [facility] Radiology Department [address] [place] [address] Elisabeth Olson PA-C [address] [place] [address] Kirstie@[facility] 03/27/2025 9:00 AM EST Nurse Only Electrocardiogram, [address] [address] Neville Ireland MD [address] [place] [address] Ranulfo@[facility] 03/27/2025 9:10 AM EST Blood Draw Laboratory Services, [address], 2nd [place] [address] Elisabeth Olson PA-C [address] [place] [address] Kirstie@[facility] 03/27/2025 10:00 AM EST Office Visit Center for Neuro-Oncology, [address], [address] [place] [address] Neville Ireland MD [address] [place] [address] Ranulfo@[facility] 03/27/2025 1:00 PM EST Office Visit Adult Palliative Care, [address], [address]th [place] [address] North Johnson MD, MPH [address] [place] [address] Kamini@[facility] 03/28/2025 1:00 PM EST Appointment Department of Radiation Oncology [address] [place] [address] Betzaida Yan PA-C [address] [place] [address] 04/04/2025 1:00 PM EST Telemedicine Psychosocial Oncology, [address] [address] Jason Del Rio MD [address] [place] [address] [email or web address] 04/24/2025 1:00 PM EST Ancillary Procedure [facility] [address] [place] [address] Neville Ireland MD [address] [place] [address] Ranulfo@[facility] 04/24/2025 3:00 PM EST Office Visit Center for Neuro-Oncology, [facility] [place] [address] [facility], 9th [place] [address] Neville Ireland MD 450 [place] [address] Ranulfo@[email or web address] documented as of this encounter Visit Diagnoses Not on filedocumented in this encounter Care Teams Diamond Blender Relationship Specialty Start Date End Date Juan Griffith MD [address] [place] [address] PCP - General Endocrinology 03/07/18 07/11/24 Jeannine Brody MD [address] [place] [address] PCP - General Internal Medicine 07/12/24 07/31/24 Jeannine Brody MD [address] [address] PCP - General Internal Medicine 08/01/24 Self-Referred, Patient Referring Physician 04/26/1804/26 Erik Greer MD [address] [facility] 120 [place] [phone] [email or web address] g Urology 04/26/18 Cabrera Cox MD [address] [place] [phone] PATRICK@[email or web address] Urology 04/26/18 Leandro Arana MD, PhD [address] [place] [address], ASB1- L2 [place] [address] [email or web address] Radiation Oncology 04/26/18 Self-Referred, Patient Referring Physician 07/12/24 Samsno Nichols MD [address] [address] [email or web address] u Radiation Oncology 08/04/24 Candice Lucas MD [address] [place] [address] Neurosurgery 08/04/24 Neville Ireland MD [address] [place] [address] Ranulfo@[facility] Medical Oncology 08/04/24 BiCole MD, PhD 60 [place] [address] WBI@[email or web address] Neurosurgery 08/06/24 Elisabeth Olson PA-C [address] [place] [address] Kirstie@[facility] Physician Automatic Furnace Operator 09/12/24 Travis Ibarra, [facility] [address] [place] [address] Tayler@[facility] Metalworking Specialist Oncology 12/05/24 documented as of this encounter Additional Source Comments The information contained in this document represents components of the legal health record. It is not the complete legal health record.[facility]
--- OUTSIDE RECORDS SUMMARY | 2025-03-20 14:49 | XMS_ITS | Encounter Summary ---
Author Organization [facility] Address [address] [place], [place] [address] [place] [address] Phone Care Team Providers Care Mobile Developer Name Role Phone Juan Griffith MD Primary Care Provider [phone] Erik Greer MD Unavailable [phone] Cabrera Cox MD Unavailable [phone] Leandro Arana MD, PhD Unavailable Jeannine Brody MD Primary Care Provider [phone] Self-Referred, Patient Unavailable Unavailab Jeannine Manrique MD Primary Care Provider [phone] Samson Nichols MD Unavailable [phone] Candice Lucas MD Unavailable [phone] Neville Ireland MD Unavailable [phone] Cole Hassan MD, PhD Unavailable [phone] Elisabeth Olson PA-C Unavailable [phone] [facility] Unavailable [phone] Encounter Details Date Type Department Care Team (Late st Contact Info) Description 06/22/2018 Procedure Pass [facility] Periop [address] [place] [address] Social History Tobacco Use Types Packs/Day Years Used Date Smoking Tobacco: Former Cigarettes 0.5 15 1 977 - 1991 Smokeless Tobacco: Never Alcohol Use Standard Drinks/Week Comments Yes 0 (1 standard drink = 0.6 oz pur e alcohol) 2-3 vodkas daily Sex and Gender Information Value Date Recorded Sex Assigned at Male 07/12/2024 2:18 PM EST Legal Sex Male 10:08 AM EDT Gender Identity Male 07/12/2024 2:18 PM EST Sexual Orientation Straight 07/12/2024 2: 18 PM EST documented as of this encounter Plan of Treatment Upcoming Encounters Date Type Department Care Team (Late Contact Info) Description 12/19/2024 Procedure Pass [facility] Radiology Department [address] [place] [address] 2025 Procedure Pass [facility] Radiology Department [address] [place] [address] 03/27/2025 8:00 AM EST Ancillary Procedure [facility] Radiology Department [address] [place] [address] Elisabeth Olson PA-C [address] [place] [address] Kirstie@[facility] 03/27/2025 9:00 AM EST Nurse Only Electrocardiogram, [address] [address] Neville Ireland MD [address] [place] [address] Ranulfo@[facility] 03/27/2025 9:10 AM EST Blood Draw Laboratory Services, [address], 2nd [place] [address] Elisabeth Olson PA-C [address] [place] [address] Kirstie@[facility] 03/27/2025 10:00 AM EST Office Visit Center for Neuro-Oncology, [address], [address]th [place] [address] Neville Ireland MD [address] [place] [address] Ranulfo@[facility] 03/27/2025 1:00 PM EST Office Visit Adult Palliative Care, [address], [address] [place] [address] North Johnson MD, MPH [address] [address] Kamini@[facility] 03/28/2025 1:00 PM EST Appointment Department of Radiation Oncology [address] [place] [address] Betzaida Yan PA-C [address] [place] [address] 04/04/2025 1:00 PM EST Telemedicine Psychosocial Oncology, [address] [address] Jason Del Rio MD [address] [place] [address] Vilma@[email or web address] 04/24/2025 1:00 PM EST Ancillary Procedure [facility] [address] [place] [address] Neville Ireland MD [address] [place] [address] Ranulfo@[facility] 04/24/2025 3:00 PM EST Office Visit Center for Neuro-Oncology, [facility] [place] [address] [place] [address], 9th [place] [address] Neville Ireland MD [address] [place] [address] Ranulfo@[email or web address] documented as of this encounter Visit Diagnoses Not on filedocumented in this encounter Care Teams Mobile Developer Relationship Specialty Start Date End Date Juan Griffith MD [address] [place] [address] PCP - General Endocrinology 03/07/18 07/11/24 Jeannine Brdoy MD [address] [place] [address] PCP - General Internal Medicine 07/12/24 07/31/24 Jeannine Brody MD [address] [place] [address] PCP - General Internal Medicine 08/01/24 Erik Greer MD [address] [facility] [address] [facility] [phone] [email or web address] Urology 04/26/18 Cabrera Cox MD [address] [facility] [address] [place] [phone] [email or web address] Urology 04/26/18 Leandro Arana MD, PhD [address] [place] [address], ASB1- L2 [place] [address] [email or web address] Radiation Oncology 04/26/18 Self-Referred, Patient Referring Physician 07/12/24 Samson Nichols MD [email or web address] Radiation Oncology 08/04/24 Candice Lucas MD [address] [place] [address] Neurosurgery 08/04/24 Neville Ireland MD [address] [place] [address] Ranulfo@[facility] Medical Oncology 08/04/24 Bi, Cole Gutierrez MD, PhD [address] [place] [address] WBI@[email or web address] Neurosurgery 08/06/24 Elisabeth Olson PA-C [address] [place] [address] Kirstie@[facility] Physician Green Energy Marketing Analyst 09/12/24 Travis Ibarra, [address] [address] Tayler@[facility] Event Marketing Manager Oncology 12/05/24 documented as of this encounter Additional Source Comments The information contained in this document represents components of the legal health record. It is not the complete legal health record.[facility]
--- OUTSIDE RECORDS SUMMARY | 2025-03-20 14:49 | XMS_ITS | Encounter Summary ---
Author Organization [facility] Address [address] [facility] [address] [place] [address] Phone Care Team Providers Care Accounting Manager Name Role Phone Erik Greer MD Unavailable [phone] Cabrera Cox MD Unavailable [phone] Leandro Arana MD, PhD Unavailable Self-Referred, Patient Unavailable Unavailab Jeannine Manrique MD Primary Care Provider Samson Nichols MD Unavailable [phone] Candice Lucas MD Unavailable [phone] Neville Ireland MD Unavailable [phone] Bi, Cole Gutierrez MD, PhD Unavailable [phone] Elisabeth Olson PA-C Unavailable [phone] Travis Ibarra [facility] Unavailable [phone] Encounter Details Date Type Department Care Team (Late st Contact Info) Description 10/24/2024 Procedure Pass [facility] [address] [place] [address] Social History Tobacco Use Types [...] st Contact Info) Description 12/19/2024 Procedure Pass [facility] Radiology Department [address] [place] [address] 2025 Procedure Pass [facility] Radiology Department [address] [place] [address] 03/27/2025 8:00 AM EST Ancillary Procedure [facility] Radiology Department [address] [place] [address] Elisabeth Olson PA-C [address] [place] [address] Kirstie@[email or web address] 03/27/2025 9:00 AM EST Nurse Only Electrocardiogram, [address] [address] Neville Ireland MD [address] [place] [address] Ranulfo@[facility] 03/27/2025 9:10 AM EST Blood Draw Laboratory Services, [address], 2nd [place] [address] Elisabeth Olson PA-C [address] [place] [address] Kirstie@[facility] 03/27/2025 10:00 AM EST Office Visit Center for Neuro-Oncology, [address], [address]th [place] [address] Neville Ireland MD [address] [place] [address] Ranulfo@[facility] 03/27/2025 1:00 PM EST Office Visit Adult Palliative Care, [address], [address] [place] [address] North Johnson MD, MPH [address] [place] [address] Kamini@[facility] 03/28/2025 1:00 PM EST Appointment Department of Radiation Oncology [address] [place] [address] Betzaida Yan PA-C [address] [place] [address] [email or web address] 04/04/2025 1:00 PM EST Telemedicine Psychosocial Oncology, [address] [address] Jason Del Rio MD [address] [place] [address] Vilma@[facility] 04/24/2025 1:00 PM EST Ancillary Procedure [facility] [address] [place] [address] Neville Ireland MD [address] [place] [address] Ranulfo@[facility] 04/24/2025 3:00 PM EST Office Visit Center for Neuro-Oncology, [address], 9th [place] [address] Neville Ireland MD [address] [place] [address] Ranulfo@[facility] documented as of this encounter Visit Diagnoses Not on filedocumented in this encounter Additional Health Concerns Assessment Noted Time PHQ-9 Depression Total Score: 7 01/08/20 7:04 AM EDT PHQ-2 Depression Total Score: 5 01/08/20 7:04 AM EDT documented as of this encounter Care Teams Accounting Manager Relationship Specialty Start Date End Date Jeannine Brody MD [address] [place] [address] PCP - General Internal Medicine 08/01/24 Erik Greer MD 100 [facility] 120 [place] [address] [email or web address] Urology 04/26/18 Cabrera Cox MD 100 [facility] 120 [place] [phone] [email or web address] Urology 04/26/18 Leandro Arana MD, PhD [address] [place] [address] [email or web address] Radiation Oncology 04/26/18 Self-Referred, Patient Referring Physician 07/12/24 Samson Nichols MD [address] [place] [address] [email or web address] Radiation Oncology 08/04/24 Candice Lucas MD [address] [place] [address] Neurosurgery 08/04/24 Neville Ireland MD [address] [place] [address] Ranulfo@[email or web address] Medical Oncology 08/04/24 Cole Hassan MD, PhD [address] [place] [address] [email or web address] Neurosurgery 08/06/24 Elisabeth Olson PA-C [address] [place] [address] Kirstie@[facility] Physician Brickmason Contractor 09/12/24 Travis Ibarra, [address] [address] Tayler@[email or web address] Lead Mechanical Engineer Oncology 12/05/24 documented as of this encounter Additional Source Comments The information contained in this document represents components of the legal health record. It is not the complete legal health record.[facility]
--- OUTSIDE RECORDS SUMMARY | 2025-03-20 14:49 | XMS_ITS | Continuity of Care Document ---
Author Organization [facility] Address [address] [place] [address] Phone [phone] Care Team Providers Care Senior Design Engineer Name Role Phone Juan Griffith M.D. Care Team Information Rece iver [phone] Problems Active Problems Provider Date Pain of ear Juan Griffith M.D. Onset: Carcinoma of prostate Juan Griffith M.D. Onse t: 09/10/2022 Osteoarthritis Juan Griffith M.D. Onset: Social History Type Date Description Comments Sex Male Sex Unknown ETOH Use Rarely consumes alcohol Tobacco Use Start: Unknown End: Unknown Patient is a former smoker Allergies and adverse reactions Active Allergies Criticality Reaction Severity Comments Date Morphine Unable to assess criticality 09/10/2022 Medications Active Medications SIG Qnty Indications Ordering Provider Date Paxlovid (300/100)20x 150 mg & 10 x 100mg TBPK 3 pills twice a day x 5 days 30pack Juan Griffith M.D. 01/12/2023 Vital Signs Date Vital Result Comment 11/12/2022 1:55pm BP Systolic 104 mmHg BP Diastolic 64 mmHg Heart Rate 66 /min Height 66 inches 5'6 Weight 151.38 lb BMI (Body Mass Index) 24.4 kg/m2 Results Test Acquired Date Facility Test Result H/L Range Note Creatinine 03/21/2023 [facility] [facility] Creatinine 1.2 mg/dL (0.7-1.2 ) Estimated GFR Creatinine 64 ML/MIN/1.73 M2 1 Comprehensive Metabolic Panl 11/17/2022 [facility] Glucose 99 mg/dL (70-99) BUN 28 mg/dL High (8-23) Creatinine 1.4 mg/dL High (0.7-1.2 ) Sodium 142 mmol/L (133-145 ) Potassium 4.8 mmol/L (3.6-5.2 ) Chloride 106 mmol/L (98-107) Bicarbonate 26 mmol/L (22-29) Anion Gap 10 (4-17) Albumin 4.8 GM/DL (3.4-4.8 ) Calcium 9.8 mg/dL (8.6-10. 5) Bilirubin,Total 0.3 mg/dL (0-1.2 ) Total Protein 6.8 GM/DL (6.2-8.2 ) Ag Ratio 2.4 Ast 25 U/L (0-40) Alk Phos 63 U/L (40-129) Alt 19 U/L (0-41) Estimated GFR Creatinine 56 ML/MIN/1.73 M2 2 Lipid Panel 11/17/2022 [facility] [facility] Cholesterol, Total 249 mg/dL High (<200) Triglyceride 72 mg/dL (<150) HDL Chol 91 mg/dL (>39) LDL Cholesterol, Calculated 144 mg/dL High (0-130) Non HDL Cholesterol (Calc) 158 mg/dL (<160) Urinalysis Complete 11/17/2022 [facility] Appear/Color LIGHT YELLOW 3 SP. [place] 1.018 (1.002-1 .030) Urine PH 6.0 (5.0-8.0 ) Urine Albumin NEGATIVE (Neg) Urine Glucose NEGATIVE (Neg) Urine Ketones NEGATIVE (Neg) Urine Bilirubin NEGATIVE (Neg) Urine Hemoglobin NEGATIVE (Neg) Urine Nitrite NEGATIVE (Neg) Urine Leukocyte NEGATIVE (Neg) Urobilinogen NORMAL mg/dL (Norm) Urine WBCs NONE SEEN /HPF (0-5) Urine RBCs NONE SEEN /HPF (0-3) Mucus SLIGHT /LPF Squamous Epith <1 /HPF (0-8) Complete Abc With Diff 11/17/2022 [facility] WBC 3.2 K/MM3 Low (4.0-11. 0) RBC 4.79 M/MM3 (4.70-6. 10) HGB 12.6 GM/DL Low (13.7-17 .1) HCT 41.2 % (40.5-50 .0) MCV 86.0 FL (80.0-94 .0) MCH 26.3 pg Low (27.0-34 .0) MCHC 30.6 g/dL Low (33.0-37 .0) PLT 189 K/MM3 (150-460 ) RDW-SD 48.2 FL High (<47.0) MPV 11.0 FL (9.4-12. 4) Automated NRBC 0.0 #/100WBC'S Abs. NRBC 0.0 K/MM3 Neut # 1.0 K/MM3 Low (1.3-7.0 ) Lymph # 1.5 K/MM3 (0.8-3.1 ) [place]# 0.3 K/MM3 Low (0.4-1.3 ) Eo # 0.3 K/MM3 (0.0-0.4 ) Baso # 0.0 K/MM3 (0.0-0.1 ) Abs. Imm Gran 0.0 K/MM3 Neut 31.9 % Low (44-76) Lymph 47.6 % High (15-43) Monocyte 9.8 % (4.5-10. 5) Eo 9.1 % High (0-6) Baso 1.3 % (0-2) Imm Gran 0.3 % 1 Creatinine based est imated glomerular filtration (eGFR) in adults is calculated using the National Kidney Foundation recommended 202 CKD-EPI equation. Estimates GFR from serum creatinine, age and sex. 2 Creatinine based est imated glomerular filtration (eGFR) in adults is calculated using the National Kidney Foundation recommended 2021 CKD-EPI equation. Estimates GFR from serum creatinine, age and sex. 3 CLEAR Medical Devices Description No Information Available Encounters Type Date Location Provider Dx Diagnosis Office Visit 09/10/2022 2:15p Main Office Juan Griffith M.D. M19.90 Unspecified osteoarthritis, unspecified site C61 Malignant neoplasm o f prostate H92.02 Otalgia, left ear Assessments Date Code Description Provider 03/21/2023 N28.9 Disorder of kidney and urete r, unspecified Juan Griffith M.D. 11/17/2022 M19.90 Unspecified osteoarthritis, unspecified site Juan Griffith M.D. 11/17/2022 C61 Malignant neoplasm of prosta te Juan Griffith M.D. 11/12/2022 M19.90 Osteoarthritis Juan foley M.D. 11/12/2022 Z00.00 Encounter for ge neral adult medical examination without abnormal findings Juna Griffith M.D. Plan of Treatment No Information Available Functional Status Description No Information Available Mental Status Description No Information Available Referrals Refer to Reason for Referral Status Appt Giovani e Justyna Horner MD Closed 00/ 000 Dermatology [address] [facility] [address] [place] [address] [phone] Deb Agrawal MD EAR BLOCKAGE AND VIBRATING FEELING Closed Environmental Conservation Professor [address] [facility], [address] [place] [address] [phone] Madeleine Umana MD Closed 00 Urologist 75 [place], [place] [phone] Cabrera Cox MD Closed Urology [address] [facility] [address] [place], [place] [phone] Atiphysical Therapy VERTIGO Closed [address] [place] [address] [phone] Lennie Nay Closed Physical Therapy [address] [place] [address] [phone]
--- OUTSIDE RECORDS SUMMARY | 2025-03-20 14:49 | XMS_ITS | Encounter Summary ---
Author Organization [facility] Address [address] [place] [address] [address] [place] [address] Phone Care Team Providers Care Emergency Management Coordinator Name Role Phone Erik Greer MD Unavailable [phone] Cabrera Cox MD Unavailable [phone] Leandro Arana MD, PhD Unavailable Self-Referred, Patient Unavailable Unavailab Jeannine Manrique MD Primary Care Provider [phone] Samson Nichols MD Unavailable [phone] Candice Lucas MD Unavailable [phone] Neville Ireland MD Unavailable [phone] Bi, Cole Gutierrez MD, PhD Unavailable [phone] Elisabeth Olson PA-C Unavailable [phone] Travis Ibarar [facility] Unavailable [phone] Reason for Visit * Reason Onset Date Comments Labs 03/20/2025 orders Encounter Details Date Type Department Care Team (Late st Contact Info) Description 03/20/2025 Documentation [facility], [facility] [place] [address] [facility], 9th [place] [address] Kaycee Covarrubias, RN [address] [place] [address] [email or web address] Labs (orders) Social History Tobacco Use Types Packs/Day Years [...] as of this encounter Progress Notes * Kaycee Covarrubias RN - 03/20/2025 9:07 AM EST Lab orders (every 2 week labs) faxed to Luis DALE, fax. . Kaycee Covarrubias RN, OCN Oncology Nurse Navigator [facility] for [facility] documented in this encounter Plan of Treatment Upcoming Encounters Date Type Department Care Team (Late st Contact Info) Description 12/19/2024 Procedure Pass [facility] Radiology Department [address] [place] [address] 2025 Procedure Pass [facility] Radiology Department [address] [place] [address] 03/27/2025 8:00 AM EST Ancillary Procedure [facility] Radiology Department [address] [place] [address] Elisabeth Olson PA-C [address] [place] [address] [email or web address] 03/27/2025 9:00 AM EST Nurse Only Electrocardiogram, [address] [address] Neville Ireland MD [address] [place] [address] Ranulfo@[facility] 03/27/2025 9:10 AM EST Blood Draw Laboratory Services, [address], 2nd Floor [place], [place] Elisabeth Olson PA-C [address] [place] [address] Kirstie@[facility] 03/27/2025 10:00 AM EST Office Visit Center for Neuro-Oncology, [address], [address] [place] [address] Neville Ireland MD [address] [place] [address] Ranulfo@[facility] 03/27/2025 1:00 PM EST Office Visit Adult Palliative Care, [address], [address] [place] [address] North Johnson MD, MPH [address] [place] [address] Kamini@[facility] 03/28/2025 1:00 PM EST Appointment Department of Radiation Oncology [address] [place] [address] Betzaida Yan PA-C [address] [place] [address] 04/04/2025 1:00 PM EST Telemedicine Psychosocial Oncology, [address] [address] Jason Del Rio MD [address] [place] [address] Vilma@[facility] 04/24/2025 1:00 PM EST Ancillary Procedure [facility] [address] [place] [address] Neville Ireland MD [address] [place] [address] Ranulfo@[facility] 04/24/2025 3:00 PM EST Office Visit [facility] for Neuro[facility]Oncology, [address], 9th [place] [address] Neville Ireland MD [address] [place] [address] Ranulfo@[facility] documented as of this encounter Visit Diagnoses Not on filedocumented in this encounter Additional Health Concerns Assessment Noted Time PHQ-9 Depression Total Score: 7 01/08/20 7:04 AM EDT PHQ-2 Depression Total Score: 0 02/20/20 9:22 AM EDT documented as of this encounter Care Teams Emergency Management Coordinator Relationship Specialty Start Date End Date Jeannine Brody MD [address] [place] [address] PCP - General Internal Medicine 08/01/24 Erik Greer MD [address] [phone] [email or web address] Urology 04/26/18 Cabrera Cox MD [address] [phone] [email or web address] Urology 04/26/18 Leandro Arana MD, PhD [address] [place] [address], [facility]- [address] [address] [email or web address] Radiation Oncology 04/26/18 Self-Referred, Patient Referring Physician 07/12/24 Samson Nichols MD [address] [place] [address] [email or web address] Radiation Oncology 08/04/24 Candice Lucas MD [address] [place] [address] Neurosurgery 08/04/24 Neville Ireland MD [address] [place] [address] Ranulfo@[facility] Medical Oncology 08/04/24 BiCole MD, PhD [address] [place] [address] WBI@[facility] Neurosurgery 08/06/24 Elisabeth Olson PA-C [address] [place] [address] Kirstie@[facility] Physician Production Foreman 09/12/24 Travis Ibarra, [address] [address] Tayler@[facility] Host Hostess Oncology 12/05/24 documented as of this encounter Additional Source Comments The information contained in this document represents components of the legal health record. It is not the complete legal health record.[facility]
--- OUTSIDE RECORDS SUMMARY | 2025-03-20 14:49 | XMS_ITS | Encounter Summary ---
Author Organization [facility] Address [address] [place], [place] [address] [place] [address] Phone Care Team Providers Care Muffler Hand Name Role Phone Erik Greer MD Unavailable [phone] Cabrera Cox MD Unavailable [phone] Leandro Arana MD, PhD Unavailable Self-Referred, Patient Unavailable Unavailab Jeannine Manrique MD Primary Care Provider [phone] Samson Nichols MD Unavailable [phone] Candice Lucas MD Unavailable [phone] Neville Ireland MD Unavailable [phone] Bi, Cole Gutierrez MD, PhD Unavailable [phone] Elisabeth Olson PA-C Unavailable [phone] Travis Ibarra [facility] Unavailable [phone] Reason for Visit * Reason Comments Medication Refill Encounter Details Date Type Department Care Team (Late st Contact Info) Description 12/19/2024 Refill [facility], [facility] [place] [address] [facility], 9th [place] [address] Elisabeth Olson PA-C [address] [place] [address] [email or web address] Medication Refill Social History Tobacco Use Types Packs/Day Years [...] st Contact Info) Description 12/19/2024 Procedure Pass [facility] Radiology Department [address] [place] [address] 2025 Procedure Pass [facility] Radiology Department [address] [place] [address] 03/27/2025 8:00 AM EST Ancillary Procedure [facility] Radiology Department [address] [place] [address] Elisabeth Olson PA-C [address] [place] [address] Kirstie@[facility] 03/27/2025 9:00 AM EST Nurse Only Electrocardiogram, [address] [address] Neville Ireland MD [address] [place] [address] Ranulfo@[facility] 03/27/2025 9:10 AM EST Blood Draw Laboratory Services, [address], 2nd [place] [address] Elisabeth Olson PA-C [address] [place] [address] Kirstie@[facility] 03/27/2025 10:00 AM EST Office Visit Center for Neuro-Oncology, [address], 9th [place] [address] Neville Ireland MD [address] [place] [address] Ranulfo@[facility] 03/27/2025 1:00 PM EST Office Visit Adult Palliative Care, [address], [address]th [place] [address] North Johnson MD, MPH [address] [place] [address] Kamini@[facility] 03/28/2025 1:00 PM EST Appointment Department of Radiation Oncology [address] [place] [address] Betzaida Yan PA-C [address] [place] [address] 04/04/2025 1:00 PM EST Telemedicine Psychosocial Oncology, [address] [address] Jason Del Rio MD [address] [place] [address] Vilma@[email or web address] 04/24/2025 1:00 PM EST Ancillary Procedure [facility] [address] [place] [address] Neville Ireland MD [address] [place] [address] Ranulfo@[facility] 04/24/2025 3:00 PM EST Office Visit Center for Neuro-Oncology, [address], [address]th [place] [address] Neville Ireland MD [address] [place] [address] [email or web address]@[facility] documented as of this encounter Visit Diagnoses Diagnosis Glioblastoma of occipital lobe documented in this encounter Additional Health Concerns Assessment Noted Time PHQ-2 Depression Total Score: 0 08/15/19 5:57 PM EDT documented as of this encounter Care Teams Muffler Hand Relationship Specialty Start Date End Date Jeannine Brody MD [address] [address] PCP - General Internal Medicine 08/01/24 Erik Greer MD [address] [phone] [email or web address] Urology 04/26/18 Cabrera Cox MD [address] [facility] [address] [phone] [email or web address] Urology 04/26/18 Leandro Arana MD, PhD [address] [place] [address] [email or web address] Radiation Oncology 04/26/18 Self-Referred, Patient Referring Physician 07/12/24 Samson Nichols MD [address] [place] [address] [email or web address] Radiation Oncology 08/04/24 Candice Lucas MD [address] [place] [address] Neurosurgery 08/04/24 Neville Ireland MD [address] [place] [address] [email or web address] Medical Oncology 08/04/24 Cole Hassan MD, PhD [address] [place] [address] [email or web address] Neurosurgery 08/06/24 Elisabeth Olson PA-C [address] [place] [address] Kirstie@[facility] Physician Metal Washing Machine Operator 09/12/24 Travis Ibarra, [address] [address] Tayler@[facility] Lead Pressman Oncology 12/05/24 documented as of this encounter Additional Source Comments The information contained in this document represents components of the legal health record. It is not the complete legal health record.[facility]
--- OUTSIDE RECORDS SUMMARY | 2025-03-20 14:49 | XMS_ITS | Encounter Summary ---
Author Organization [facility] Address [address] [place], [place] [address] [place] [address] Phone Care Team Providers Care Assembler [employer] Name Role Phone Juan Griffith MD Primary Care Provider [phone] Erik Greer MD Unavailable [phone] Cabrera Cox MD Unavailable [phone] Leandro Arana MD, PhD Unavailable Jeannine Brody MD Primary Care Provider [phone] Self-Referred, Patient Unavailable Unavailab Jeannine Manrique MD Primary Care Provider [phone] Samson Nichols MD Unavailable [phone] Candice Lucas MD Unavailable [phone] Neville Ireland MD Unavailable [phone] Cole Hassan MD, PhD Unavailable [phone] Elisabeth Olson PA-C Unavailable [phone] Travis Ibarra [facility] Unavailable [phone] Reason for Visit * Reason Onset Date Comments Test results 05/29/2018 Encounter Details Date Type Department Care Team (Late Contact Info) Description 05/29/2018 Telephone [facility] Urology [address] [facility] [place] [address] [place] [address] Shannan Thurston [address] [place] [address] [email or web address] Test results Social History Tobacco Use Types Packs/Day Years [...] st Contact Info) Description 12/19/2024 Procedure Pass [facility] Radiology Department [address] [place] [address] 2025 Procedure Pass [facility] Radiology Department [address] [place] [address] 03/27/2025 8:00 AM EST Ancillary Procedure [facility] Radiology Department [address] [place] [address] Elisabeth Olson PA-C [address] [place] [address] Kirstie@[facility] 03/27/2025 9:00 AM EST Nurse Only Electrocardiogram, [address] [address] Neivlle Ireland MD [address] [place] [address] Ranulfo@[facility] 03/27/2025 9:10 AM EST Blood Draw Laboratory Services, [address] [place] [address] Elisabeth Olson PA-C [address] [place] [address] Kirstie@[facility] 03/27/2025 10:00 AM EST Office Visit Center for Neuro-Oncology, [address], [address] [place] [address] Neville Ireland MD [address] [place] [address] Ranulfo@[facility] 03/27/2025 1:00 PM EST Office Visit Adult Palliative Care, [address] [place] [address] North Johnson MD, MPH [address] [place] [address] Kamini@[facility] 03/28/2025 1:00 PM EST Appointment Department of Radiation Oncology [address] [place] [address] Betzaida Yan PA-C [address] [place] [address] 04/04/2025 1:00 PM EST Telemedicine Psychosocial Oncology, [address] [address] Jason Del Rio MD [address] [place] [address] [email or web address] 04/24/2025 1:00 PM EST Ancillary Procedure [facility] [address] [place] [address] Neville Ireland MD [address] [place] [address] Ranulfo@[facility] 04/24/2025 3:00 PM EST Office Visit [facility], [facility] [place] [address] [place] [address], [address]th [place] [address] Neville Ireland MD [address] [place] [address] Ranulfo@[facility] documented as of this encounter Visit Diagnoses Not on filedocumented in this encounter Care Teams [employer] Relationship Specialty Start Date End Date Juan Griffith MD [address] [place] [address] PCP - General Endocrinology 03/07/18 07/11/24 Jeannine Brody MD [address] [place] [address] PCP - General Internal Medicine 07/12/24 07/31/24 Jeannine Brody MD [address] [place] [address] PCP - General Internal Medicine 08/01/24 Erik Greer MD [address] [place] [address] [email or web address] Urology 04/26/18 Cabrera Cox MD [address] [place] [address] [email or web address] Urology 04/26/18 Leandro Arana MD, PhD [address] [place] [address], [facility] [place] [address] [email or web address] Radiation Oncology 04/26/18 Self-Referred, Patient Referring Physician 07/12/24 Samson Nichols MD [email or web address] Radiation Oncology 08/04/24 Candice Lucas MD [address] [place] [address] Neurosurgery 08/04/24 Neville Ireland MD [address] [place] [address] Ranulfo@[email or web address] Medical Oncology 08/04/24 Bi, Cole Gutierrez MD, PhD [address] [place] [address] WBI@[email or web address] Neurosurgery 08/06/24 Elisabeth Olson PA-C [address] [place] [address] Kirstie@[facility] Physician Bowling Floor Desk Clerk 09/12/24 Travis Ibarra, [address] [address] Tayler@[facility] Biomedical Scientist Oncology 12/05/24 documented as of this encounter Additional Source Comments The information contained in this document represents components of the legal health record. It is not the complete legal health record.[facility]
== END 2025-03-20 10:36 | disposition home or self-care (01) ==
LOC: HO.HVNA 10:35
PROVIDERS: Visit Provider Internal Medicine Hematology & Oncology
DX: C71.4 Malignant neoplasm of occipital lobe (principal); C71.9 Malignant neoplasm of brain, unspecified
CPT/HCPCS: 36415; 80053; 83735; 85025